=== PATIENT | female | born 1945 | race Caucasian/White ===

== ENCOUNTER → 2016-07-09 | Outpatient (CLI) | payer MEDICARE ==
--- NOTE | 2016-07-12 09:28 | MM ---
Reason for exam: screening (asymptomatic). Last mammogram was performed 6 months ago. History: Patient is postmenopausal. Family history of breast cancer in aunt and breast cancer in sister at age 52. Benign US biopsy breast VAD RT of the right breast, June 23, 2015. MG discontinued stereo core RT of the right breast, June 23, 2015. Excisional biopsy of the left breast. Excisional biopsy of the right breast. Took estrogen for 12 years. Physical Findings: A clinical breast exam by your physician is recommended on an annual basis and results should be correlated with mammographic findings. MG 3D Screening Mammo W/Cad Bilateral CC and MLO view(s) were taken. Prior study comparison: December 30, 2015, right breast MG 3d diag mammo w/cad RT. June 23, 2015, right breast MG diagnostic mammo RT wo CAD. The breast tissue is heterogeneously dense. This may lower the sensitivity of mammography. Finding: There are vascular calcifications. There is no discrete abnormality. No significant changes in finding since December 30, 2015 and June 23, 2015. ASSESSMENT: Benign, BI-RAD 2 RECOMMENDATION: Routine screening mammogram of both breasts in 1 year.
== END | disposition home or self-care (01) ==
LOC: RADMAMWWP 09:27
PROVIDERS: ATTEND Surgery
DX: Z12.31 Encounter for screening mammogram for malignant neoplasm of breast (principal)
CPT/HCPCS: 77063; G0202

== ENCOUNTER → 2017-07-11 | Outpatient (CLI) | payer MEDICARE ==
--- NOTE | 2017-07-12 14:16 | MM ---
Reason for exam: screening (asymptomatic). Last mammogram was performed 1 year ago. History: Patient is postmenopausal. Family history of breast cancer in aunt and breast cancer in sister at age 52. Benign US biopsy breast VAD RT of the right breast, June 23, 2015. MG discontinued stereo core RT of the right breast, June 23, 2015. Excisional biopsy of the left breast. Excisional biopsy of the right breast. Took estrogen for 12 years. Physical Findings: A clinical breast exam by your physician is recommended on an annual basis and results should be correlated with mammographic findings. MG 3D Screening Mammo W/Cad Bilateral CC and MLO view(s) were taken. Prior study comparison: July 09, 2016, bilateral MG 3d screening mammo w/cad. December 30, 2015, right breast MG 3d diag mammo w/cad RT. The breast tissue is heterogeneously dense. This may lower the sensitivity of mammography. Finding: There are typically benign vascular calcifications in both breasts. No suspicious abnormality. No significant changes in finding since July 09, 2016 and December 30, 2015. ASSESSMENT: Benign, BI-RAD 2 RECOMMENDATION: Routine screening mammogram of both breasts in 1 year.
== END | disposition home or self-care (01) ==
LOC: RADMAMWWP 16:21
PROVIDERS: ATTEND Internal Medicine
DX: Z12.31 Encounter for screening mammogram for malignant neoplasm of breast (principal)
CPT/HCPCS: 77063; 77067

== ENCOUNTER 2020-01-02 10:39 | Day surgery (SDC) | payer MEDICARE ==
[2019-12-28 15:49] VITALS: BMI 32.5
[~2020-01-02 10:39] MED LIST: LACTATED RINGERS 1,000 ML IV SCH
[2020-01-02 11:01] VITALS: RESP 16; TEMP 98
[2020-01-02] MEDS ORDERED: ONDANSETRON 4 MG/2 ML VIAL ONE (11:26)
[2020-01-02 11:27] LABS: Glucose,Whole Blood 299 mg/dL (75-99)
[2020-01-02] MEDS ORDERED: INSULIN ASPART (NovoLOG) 100 UNIT/ML VIAL SQ ONE ×2 (11:30→12:52)
[2020-01-02] MEDS ORDERED: PROPOFOL 10 MG/ML 20 ML VIAL IV ONE (12:04)
[2020-01-02] MEDS ORDERED: LIDOCAINE 1% INJ 10MG/ML (20 ML MDV) ONE (12:04)
[2020-01-02] MEDS ORDERED: IV FLUID CONTINUATION 1,000 ML IV ONE (12:39)
[2020-01-02 12:51] LABS: Glucose,Whole Blood 304 mg/dL (75-99)
[2020-01-02 12:55] VITALS: BP 120/65; PULSE 82
--- NOTE | 2020-01-02 13:09 | PCN ---
PROCEDURE NOTE PROCEDURE: Bone marrow aspirate and biopsy. INDICATION: Unexplained anemia. After obtaining consent from the patient, the procedure was performed in the endoscopy suite under general anesthesia performed by Anesthesia Team. The patient was put in the left lateral decubital position. The right posterior iliac crest was localized. Skin was cleansed with ChloraPrep, all sterile procedures were followed; 2 mL of the 2% Xylocaine was used for local anesthetic. One inch needle was inserted about 0.5 cm core biopsy was obtained and the small aspirate was obtained due to dry tap. The patient tolerated procedure very well without any immediate complications. There was negligible blood loss. MMODL / IJN: [id number] /
[2020-01-02 13:34] LABS: HCT 25.5 % (34.0-46.0); HGB 8.3 gm/dL (11.4-16.0); MCH 30.7 pg (25.0-35.0); MCHC 32.7 g/dL (31.0-37.0); Mean Platelet Volume 7.8; Platelet Count 193 k/uL (150-450); RBC 2.71 m/uL (3.80-5.40); RDW 14.9 % (11.5-15.5); Reticulocyte % 2.5 % (0.5-2.0); WBC 3.8 k/uL (3.8-10.6)
[2020-01-02 14:47] LABS: Band Neutrophils % 4 %; Lymphocytes # (M) 1.33 k/uL (1.0-4.8); Metamyelocytes # (M) 0.08 k/uL (0); Metamyelocytes % 2 %; Monocytes # (M) 0.38 k/uL (0-1.0); Myelocytes # (M) 0.11 k/uL (0); Myelocytes % 3 %; Neutrophils % (M) 45 %
[2020-01-02 14:48] LABS: Blast Cells # (M) 0.11 k/uL (0); Nucleated Red Blood Cells 0 /100 WBC (0-0); Total Cells Counted 200
[2020-01-02 14:51] LABS: Poikilocytosis (M) Present
== END 2020-01-02 13:25 | disposition home or self-care (01) ==
LOC: OR 10:39
PROVIDERS: ATTEND Internal Medicine Hematology & Oncology
DX: D64.9 Anemia, unspecified (principal); E11.9 Type 2 diabetes mellitus without complications; I10 Essential (primary) hypertension; K21.9 Gastro-esophageal reflux disease without esophagitis; E78.5 Hyperlipidemia, unspecified; Z98.890 Other specified postprocedural states; Z98.42 Cataract extraction status, left eye; Z98.41 Cataract extraction status, right eye; Z90.49 Acquired absence of other specified parts of digestive tract; Z90.710 Acquired absence of both cervix and uterus; Z86.19 Personal history of other infectious and parasitic diseases; Z83.2 Family history of diseases of the blood and blood-forming organs and certain disorders involving the immune mechanism; Z80.3 Family history of malignant neoplasm of breast; Z79.4 Long term (current) use of insulin; Z79.899 Other long term (current) drug therapy; Z79.82 Long term (current) use of aspirin
CPT/HCPCS: 38222; 85025; 85045; J2405; J2001; J2704

== ENCOUNTER 2020-01-12 11:16 | Inpatient (IN) | payer MEDICARE ==
--- NOTE | 2020-01-12 11:40 | ED ---
General Adult HPI - General Chief complaint: Recheck/Abnormal Lab/Rx Stated complaint: Needs blood transfusion Time Seen by Provider: 01/12/20 11:20 Source: patient, RN notes reviewed, old records reviewed Mode of arrival: ambulatory - History of Present Illness Initial comments: This is a 74 female who has been diagnosed with multiple adenoma and she has been anemic in the past and needed a couple units of blood. Patient states her doctor wanted her to get transfusion next week however she became more short of breath and was finding it difficult to move around her apartment so they told her to come into the emergency department and get a blood transfusion. Patient states she believes her hemoglobin as a couple days ago was 7.2. Patient denies any chest pain or palpitations she does state she has quite a bit of exertional dyspnea. Patient also denies any calf pain or any extra edema in her legs. Patient denies any recent fever chills or cough. Patient denies any nausea vomiting or diarrhea. Patient denies any black or bloody stools. - Related Data Home Medications Medication Instructions Recorded Confirmed Aspirin [Adult Low Dose Aspirin EC] 81 mg PO MOWEFR 11/22/19 12/28/19 Insulin Lispro Rx Scale Form 0 units SQ AC-TID 11/22/19 12/28/19 [humaLOG Outpatient Scale Rx Form] Lisinopril-Hctz 20-25 mg 1 tab PO DAILY 11/22/19 12/28/19 [Zestoretic 20-25] Omeprazole [PriLOSEC] 20 mg PO DAILY 11/22/19 12/28/19 Pravastatin Sodium [Pravachol] 40 mg PO DAILY 11/22/19 12/28/19 Tolterodine Tartrate [Detrol] 4 mg PO DAILY 11/22/19 12/28/19 Ubidecarenone [Co Q-10] 50 mg PO DAILY 11/22/19 12/28/19 amLODIPine BESYLATE [Norvasc] 5 mg PO DAILY 11/22/19 12/28/19 Insulin Glargine [Lantus] 28 - 30 unit SQ DAILY 12/28/19 01/02/20 Allergies Allergy/AdvReac Type Severity Reaction Status Date / Time No Known Allergies Allergy Verified 01/12/20 11:23 Review of Systems ROS Statement: Those systems with pertinent positive or pertinent negative responses have been documented in the HPI. ROS Other: All systems not noted in ROS Statement are negative. Past Medical History Past Medical History: Diabetes Mellitus, GERD/Reflux, Hypertension, Musculoskeletal Disorder Additional Past Medical History / Comment(s): Leaky heart valve. IDDM Type I since 1959. Chronic back pain, herniated discs. History of Any Multi-Drug Resistant Organisms: None Reported Past Surgical History: Breast Surgery, Cholecystectomy, Hysterectomy, Orthopedic Surgery, Tubal Ligation Additional Past Surgical History / Comment(s): Bilat breast biopsy. Bilat cataracts; Laser of eyes for bleeding blood vessels. Rt Foot surgery x2. Bilat CTR. Past Anesthesia/Blood Transfusion Reactions: Motion Sickness, Postoperative Nausea & Vomiting (PONV) Smoking Status: Never smoker Past Alcohol Use History: None Reported Past Drug Use History: None Reported - Past Family History Sister(s) Family Medical History: Cancer Additional Family Medical History / Comment(s): breast cancer Father Family Medical History: Pulmonary Embolus General Exam - General Exam Comments Initial Comments: GENERAL: Patient is well-developed and well-nourished. Patient is nontoxic and well- hydrated and is in no acute distress. ENT: Neck is soft and supple. No significant lymphadenopathy is noted. Oropharynx is clear. Moist mucous membranes. Neck has full range of motion without eliciting any pain. EYES: The sclera were anicteric and conjunctiva were pink and moist. Extraocular movements were intact and pupils were equal round and reactive to light. Eyelids were unremarkable. PULMONARY: Unlabored respirations. Good breath sounds bilaterally. No audible rales rhonchi or wheezing was noted. CARDIOVASCULAR: There is a regular rate and rhythm without any murmurs gallops or rubs. ABDOMEN: Soft and nontender with normal bowel sounds. SKIN: Patient is pale NEUROLOGIC: Patient is alert and oriented x3. Cranial nerves II through XII are grossly intact. Motor and sensory are also intact. Normal speech, volume and content. Symmetrical smile. MUSCULOSKELETAL: Normal extremities with adequate strength and full range of motion. No lower extremity swelling or edema. No calf tenderness. LYMPHATICS: No significant lymphadenopathy is noted PSYCHIATRIC: Normal psychiatric evaluation. Course Vital Signs 01/12/20 01/12/20 11:23 12:17 Temperature 98.1 F 98.5 F Pulse Rate 84 90 Respiratory 18 18 Rate Blood Pressure 144/74 139/54 O2 Sat by Pulse 98 96 Oximetry Medical Decision Making - Medical Decision Making EKG shows normal sinus rhythm at 79 bpm DE interval is on a 58 QRSs 106 Q-T intervals 356 QTC of 408. Patient's EKG shows no ST segment elevation or depression. I spoke with the senior accounts payable specialist he wanted the patient needed to units of packed red blood cells. Patient will be admitted to Dr. Sheikh Khan wrote admitting orders - Lab Data Result diagrams: 01/12/20 11:54 01/12/20 11:54 Lab Results 01/12/20 01/12/20 01/12/20 Range/Units 11:54 11:54 11:54 WBC 3.9 (3.8-10.6) k/uL RBC 2.21 L (3.80-5.40) m/uL Hgb 7.0 L (11.4-16.0) gm/dL Hct 20.8 L (34.0-46.0) % MCV 94.3 (80.0-100.0) fL MCH 31.6 (25.0-35.0) pg MCHC 33.5 (31.0-37.0) g/dL RDW 15.6 H (11.5-15.5) % Plt Count 199 (150-450) k/uL PT 9.6 (9.0-12.0) sec INR 0.9 (<1.2) APTT 22.4 (22.0-30.0) sec Sodium 131 L (137-145) mmol/L Potassium 4.4 (3.5-5.1) mmol/L Chloride 98 (98-107) mmol/L Carbon Dioxide 22 (22-30) mmol/L Anion Gap 11 mmol/L BUN 33 H (7-17) mg/dL Creatinine 1.96 H (0.52-1.04) mg/dL Est GFR (CKD-EPI)AfAm 28 (>60 ml/min/1.73 sqM) Est GFR (CKD-EPI)NonAf 24 (>60 ml/min/1.73 sqM) Glucose 84 (74-99) mg/dL Calcium 10.2 (8.4-10.2) mg/dL Total Bilirubin 0.7 (0.2-1.3) mg/dL AST 30 (14-36) U/L ALT 12 (4-34) U/L Alkaline Phosphatase 71 (38-126) U/L Troponin I (0.000-0.034) ng/mL Total Protein 6.8 (6.3-8.2) g/dL Albumin 4.0 (3.5-5.0) g/dL Blood Type Blood Type Recheck Bld Type Recheck Status Antibody Screen Spec Expiration Date 01/12/20 01/12/20 Range/Units 11:54 11:54 WBC (3.8-10.6) k/uL RBC (3.80-5.40) m/uL Hgb (11.4-16.0) gm/dL Hct (34.0-46.0) % MCV (80.0-100.0) fL MCH (25.0-35.0) pg MCHC (31.0-37.0) g/dL RDW (11.5-15.5) % Plt Count (150-450) k/uL PT (9.0-12.0) sec INR (<1.2) APTT (22.0-30.0) sec Sodium (137-145) mmol/L Potassium (3.5-5.1) mmol/L Chloride (98-107) mmol/L Carbon Dioxide (22-30) mmol/L Anion Gap mmol/L BUN (7-17) mg/dL Creatinine (0.52-1.04) mg/dL Est GFR (CKD-EPI)AfAm (>60 ml/min/1.73 sqM) Est GFR (CKD-EPI)NonAf (>60 ml/min/1.73 sqM) Glucose (74-99) mg/dL Calcium (8.4-10.2) mg/dL Total Bilirubin (0.2-1.3) mg/dL AST (14-36) U/L ALT (4-34) U/L Alkaline Phosphatase (38-126) U/L Troponin I 0.017 (0.000-0.034) ng/mL Total Protein (6.3-8.2) g/dL Albumin (3.5-5.0) g/dL Blood Type O Positive Blood Type Recheck O Pos Bld Type Recheck Status No Antibody Screen NEGATIVE Spec Expiration Date 01/15/2020 - 2353 Disposition Clinical Impression: Anemia, Shortness of breath Disposition: ADMITTED IP TO THIS [facility] Referrals: Zaria Sands MD [Primary Care Provider] - 1-2 days Time of Disposition: 13:04
--- NOTE | 2020-01-12 12:04 | XR ---
EXAMINATION TYPE: XR chest 2V DATE OF EXAM: 01/12/2020 COMPARISON: NONE HISTORY: Shortness of breath TECHNIQUE: Frontal and lateral views of the chest are obtained. FINDINGS: Scattered senescent parenchymal changes noted. Hyperinflation compatible with COPD. Patchy basilar infiltrates may reflect developing pneumonia. Granuloma left upper lobe. Heart size is stable. Mediastinal structures are stable and grossly unremarkable. No evidence for hilar prominence. Degenerative changes dorsal spine. IMPRESSION: 1. Patchy basilar infiltrates may reflect developing pneumonia. Granuloma left upper lobe.
[2020-01-12 12:14] LABS: Calcium 10.2 mg/dL (8.4-10.2); Potassium 4.4 mmol/L (3.5-5.1); Total Bilirubin 0.7 mg/dL (0.2-1.3); Total Protein 6.8 g/dL (6.3-8.2)
[2020-01-12 12:19] LABS: HCT 20.8 % (34.0-46.0); MCH 31.6 pg (25.0-35.0); MCHC 33.5 g/dL (31.0-37.0); MCV 94.3 fL (80.0-100.0); Mean Platelet Volume 7.4; Platelet Count 199 k/uL (150-450); RBC 2.21 m/uL (3.80-5.40); RDW 15.6 % (11.5-15.5); WBC 3.9 k/uL (3.8-10.6)
[2020-01-12 12:22] LABS: INR 0.9 (<1.2); Partial Thromboplastin Time 22.4 sec (22.0-30.0); Prothrombin Time 9.6 sec (9.0-12.0)
[2020-01-12 13:27] LABS: Band Neutrophils % 1 %; Lymphocytes # (M) 1.17 k/uL (1.0-4.8); Metamyelocytes # (M) 0.04 k/uL (0); Metamyelocytes % 1 %; Monocytes # (M) 0.55 k/uL (0-1.0); Myelocytes # (M) 0.12 k/uL (0); Myelocytes % 3 %; Neutrophils % (M) 52 %
[2020-01-12 13:32] LABS: Blast Cells # (M) 0.04 k/uL (0); Nucleated Red Blood Cells 0 /100 WBC (0-0); Total Cells Counted 200
[2020-01-12] MEDS ORDERED: HYDROcodone/APAP 5-325MG 1 EACH TAB PO PRN (17:16)
[2020-01-12] MEDS ORDERED: ACETAMINOPHEN TAB 325 MG TAB PO PRN (17:16)
[2020-01-12] MEDS ORDERED: ALPRAZolam 0.25 MG TAB PO PRN (17:17)
[2020-01-12] MEDS ORDERED: DEXTROSE 50% SYRINGE 50 ML IVP STA (17:18)
[2020-01-12 17:19] LABS: Glucose,Whole Blood 66 mg/dL (75-99)
[2020-01-12 17:19] LABS: Glucose,Whole Blood 64 mg/dL (75-99)
[2020-01-12] MEDS ORDERED: DEXTROSE 50% SYRINGE 50 ML IVP ONE (17:22)
[2020-01-12 17:46] LABS: Glucose,Whole Blood 151 mg/dL (75-99)
[2020-01-12] MEDS: INSULIN ASPART (NovoLOG) 100 UNIT/ML VIAL SQ SCH ×2 (18:20→20:42)
[2020-01-12 20:27] LABS: Glucose,Whole Blood 188 mg/dL (75-99)
[2020-01-12] MEDS: MELATONIN 3 MG TABLET PO SCH (20:42)
[2020-01-12 21:49] LABS: HCT 29.7 % (34.0-46.0); MCH 32.5 pg (25.0-35.0); MCHC 33.4 g/dL (31.0-37.0); MCV 97.3 fL (80.0-100.0); Mean Platelet Volume 7.2; Platelet Count 166 k/uL (150-450); RBC 3.06 m/uL (3.80-5.40); RDW 14.9 % (11.5-15.5); WBC 4.1 k/uL (3.8-10.6)
[2020-01-12 21:58] LABS: HGB 9.9 gm/dL (11.4-16.0)
[2020-01-12 22:36] LABS: Band Neutrophils % 7 %; Blast Cells # (M) 0.04 k/uL (0); Lymphocytes # (M) 1.31 k/uL (1.0-4.8); Metamyelocytes # (M) 0.08 k/uL (0); Metamyelocytes % 2 %; Monocytes # (M) 0.21 k/uL (0-1.0); Myelocytes # (M) 0.04 k/uL (0); Myelocytes % 1 %; Neutrophils % (M) 54 %; Nucleated Red Blood Cells 1 /100 WBC (0-0); Polychromasia Present; Total Cells Counted 200
[2020-01-12 22:37] LABS: Anisocytosis (M) Present
[2020-01-13 07:06] LABS: Glucose,Whole Blood 167 mg/dL (75-99)
[2020-01-13 07:09] LABS: HCT 30.1 % (34.0-46.0); HGB 10.1 gm/dL (11.4-16.0); MCH 31.8 pg (25.0-35.0); MCHC 33.6 g/dL (31.0-37.0); MCV 94.8 fL (80.0-100.0); Mean Platelet Volume 7.7; Platelet Count 164 k/uL (150-450); RBC 3.18 m/uL (3.80-5.40); WBC 5.5 k/uL (3.8-10.6)
[2020-01-13] MEDS: ONDANSETRON 4 MG/2 ML VIAL IVP PRN ×3 (07:11→20:06)
[2020-01-13] MEDS: INSULIN DETEMIR (LEVEMIR) 100 UNIT/ML SYR SQ SCH (07:15)
[2020-01-13] MEDS: INSULIN ASPART (NovoLOG) 100 UNIT/ML VIAL SQ SCH ×4 (07:15→20:32)
[2020-01-13 07:16] LABS: Calcium 10.2 mg/dL (8.4-10.2); Potassium 4.3 mmol/L (3.5-5.1)
--- NOTE | 2020-01-13 07:39 | XR ---
EXAMINATION TYPE: XR chest 1V DATE OF EXAM: 01/13/2020 CLINICAL HISTORY: Difficulty breathing progress study. History of multiple myeloma. TECHNIQUE: Single AP portable frontal view of the chest is obtained. COMPARISON: Chest x-ray from one day earlier FINDINGS: Osseous structures remain demineralized. Underlying scoliosis is noted. Cardiac silhouette size is stable and within normal limits. Worsening right basilar opacity partially silhouetting righ t hemidiaphragm. Background chronic parenchymal change. Stable left mid lung linear scarring or atele ctasis. Stable lateral left upper lung calcified 9 mm nodule or granuloma. IMPRESSION: Chronic changes with worsening right lower lobe acute infiltrate and/or atelectasis noted .
[2020-01-13] MEDS: amLODIPine 5 MG TAB PO SCH (08:15)
[2020-01-13] MEDS: LISINOPRIL-HCTZ 20-25 MG 1 EACH TAB PO SCH (08:15)
[2020-01-13] MEDS: PRAVASTATIN SODIUM 40 MG TAB PO SCH (08:16)
[2020-01-13] MEDS: PANTOPRAZOLE 40 MG TABLET PO SCH (08:16)
[2020-01-13] MEDS: OXYBUTYNIN XL 5 MG TAB.ER.24 PO SCH (08:16)
[2020-01-13] MEDS ORDERED: NON FORMULARY DRUG (Ubidecarenone [Co Q-10] 100 MG) PO SCH (09:00)
[2020-01-13 09:31] LABS: Band Neutrophils % 3 %; Blast Cells # (M) 0.06 k/uL (0); Lymphocytes # (M) 1.21 k/uL (1.0-4.8); Metamyelocytes # (M) 0.06 k/uL (0); Metamyelocytes % 1 %; Monocytes # (M) 0.55 k/uL (0-1.0); Myelocytes # (M) 0.11 k/uL (0); Myelocytes % 2 %; Neutrophils % (M) 64 %; Nucleated Red Blood Cells 0 /100 WBC (0-0); Total Cells Counted 200
--- NOTE | 2020-01-13 10:25 | P.HPIM ---
History of Present Illness H&P Date: 01/12/20 Chief Complaint: Abnormal labs 74 female who has been diagnosed with multiple adenoma and she has been anemic in the past and needed a couple units of blood. Patient states her doctor wanted her to get transfusion next week however she became more short of breath and was finding it difficult to move around her apartment so they told her to come into the emergency department and get a blood transfusion. Patient states she believes her hemoglobin as a couple days ago was 7.2. Patient denies any chest pain or palpitations she does state she has quite a bit of exertional dyspnea. Patient also denies any calf pain or any extra edema in her legs. Patient denies any recent fever chills or cough. Patient denies any nausea vomiting or diarrhea. Patient denies any black or bloody stools. Workup in ED was significant for an EKG revealing normal sinus rhythm with a hea rt rate of 79, QRS of [address] segment elevation or depression; blood work in ED was significant for hemoglobin of 7.0, sodium of 131, BUN/cr of 33/1.96; patient was discussed with primary design specialist by ER physician and patient was recommended transfusion with packed RBCs Review of Systems REVIEW OF SYSTEMS: CONSTITUTIONAL: fatigue. HEENT: No recent visual problems or hearing problems. Denied any sore throat. CARDIOVASCULAR: No chest pain, orthopnea, PND, no palpitations, no syncope. PULMONARY: Complains shortness of breath. GASTROINTESTINAL: No diarrhea, no nausea, no vomiting, no abdominal pain. NEUROLOGICAL: No headaches, no weakness, no numbness. HEMATOLOGICAL: Denies any bleeding or petechiae. GENITOURINARY: Denies any burning micturition, frequency, or urgency. MUSCULOSKELETAL/RHEUMATOLOGICAL: Denies any joint pain, swelling, or any muscle pain. ENDOCRINE: Denies any polyuria or polydipsia. The rest of the 14-point review of systems is negative. Past Medical History Past Medical History: Diabetes Mellitus, GERD/Reflux, Hypertension, Musculoskeletal Disorder Additional Past Medical History / Comment(s): Leaky heart valve. IDDM Type I since 1959. Chronic back pain, herniated discs, multiple mylenoma History of Any Multi-Drug Resistant Organisms: None Reported Past Surgical History: Breast Surgery, Cholecystectomy, Hysterectomy, Orthopedic Surgery, Tubal Ligation Additional Past Surgical History / Comment(s): Bilat breast biopsy. Bilat ca taracts; Laser of eyes for bleeding blood vessels. Rt Foot surgery x2. Bilat CTR. Past Anesthesia/Blood Transfusion Reactions: Motion Sickness, Postoperative Nausea & Vomiting (PONV) Smoking Status: Never smoker Past Alcohol Use History: None Reported Past Drug Use History: None Reported - Past Family History Sister(s) Family Medical History: Cancer Additional Family Medical History / Comment(s): breast cancer Father Family Medical History: Pulmonary Embolus Medications and Allergies Home Medications Medication Instructions Recorded Confirmed Type Aspirin [Adult Low Dose Aspirin EC] 81 mg PO MOWEFR 11/22/19 01/12/20 History Insulin Lispro Rx Scale Form See Protocol SQ AC-TID 11/22/19 01/12/20 History [humaLOG Outpatient Scale Rx Form] Lisinopril-Hctz 20-25 mg 1 tab PO DAILY 11/22/19 01/12/20 History [Zestoretic 20-25] Omeprazole [PriLOSEC] 20 mg PO DAILY 11/22/19 01/12/20 History Pravastatin Sodium [Pravachol] 40 mg PO DAILY 11/22/19 01/12/20 History Tolterodine Tartrate [Detrol] 4 mg PO DAILY 11/22/19 01/12/20 History Ubidecarenone [Co Q-10] 100 mg PO DAILY 11/22/19 01/12/20 History amLODIPine BESYLATE [Norvasc] 5 mg PO DAILY 11/22/19 01/12/20 History Insulin Glargine [Lantus] 28 - 30 unit SQ DAILY 12/28/19 01/12/20 History calcium polycarbophiL [Fibercon] 625 mg PO DAILY 01/12/20 01/12/20 History Allergies Allergy/AdvReac Type Severity Reaction Status Date / Time No Known Allergies Allergy Verified 01/12/20 13:24 Physical Exam Vitals: Vital Signs Temp Pulse Pulse Resp BP BP Pulse Ox 01/12/20 17:12 97.8 F 77 18 156/72 98 01/12/20 17:11 97.8 F 76 18 156/72 97 01/12/20 17:01 98.1 F 77 18 151/73 95 01/12/20 16:48 98.1 F 74 18 138/75 97 01/12/20 14:44 98.5 F 83 18 138/67 98 01/12/20 14:23 83 18 141/61 01/12/20 14:13 97.8 F 80 20 147/67 97 01/12/20 12:17 98.5 F 90 18 139/54 96 01/12/20 11:23 98.1 F 84 18 144/74 98 Intake and Output 01/12/20 01/12/20 01/12/20 06:59 14:59 22:59 Intake Total 0 310 Balance 0 310 Intake: Blood Product 0 310 Rc As-1 Unit 0 [id number] Rc As-1 Unit 0 310 [id number] Other: # Voids 1 Weight 81.193 kg - Constitutional General appearance: Present: average body habitus, cooperative, no acute distress - EENT Eyes: Present: anicteric sclerae, EOMI, PERRLA, normal appearance ENT: Present: hearing grossly normal, normal oropharynx Ears: bilateral: normal - Neck Neck: Present: normal ROM. Absent: lymphadenopathy, rigidity, thyromegaly Carotids: negative: bruit present Thyroid: bilateral: normal size, negative: enlarged, nodule - Respiratory Respiratory: bilateral: CTA, negative: rales, rhonchi, wheezing - Cardiovascular Rhythm: regular Heart sounds: normal: S1, S2 Abnormal Heart Sounds: Absent: systolic murmur, diastolic murmur - Gastrointestinal General gastrointestinal: Present: normal bowel sounds, soft. Absent: distended, organomegaly, tenderness - Genitourinary Genitourinary Comment(s): deferred - Integumentary Integumentary: Present: normal turgor. Absent: jaundiced, rash, ulcer - Neurologic Neurologic: Present: CNII-XII intact. Absent: focal deficits - Musculoskeletal Musculoskeletal: Present: gait normal, strength equal bilaterally - Psychiatric Psychiatric: Present: A&O x's 3, appropriate affect, intact judgment & insight Results CBC & Chem 7: 01/13/20 06:23 01/13/20 06:23 Labs: Abnormal Lab Results - Last 24 Hours (Table) 01/12/20 01/12/20 01/12/20 Range/Units 11:54 11:54 11:54 RBC 2.21 L (3.80-5.40) m/uL Hgb 7.0 L (11.4-16.0) gm/dL Hct 20.8 L (34.0-46.0) % RDW 15.6 H (11.5-15.5) % Blast Cells % 1 H* % Metamyelocytes # (Man) 0.04 H (0) k/uL Myelocytes # (Manual) 0.12 H (0) k/uL Blast Cells # (Man) 0.04 H (0) k/uL Sodium 131 L (137-145) mmol/L BUN 33 H (7-17) mg/dL Creatinine 1.96 H (0.52-1.04) mg/dL POC Glucose (mg/dL) (75-99) mg/dL Crossmatch See Detail 01/12/20 01/12/20 Range/Units 17:01 17:16 RBC (3.80-5.40) m/uL Hgb (11.4-16.0) gm/dL Hct (34.0-46.0) % RDW (11.5-15.5) % Blast Cells % % Metamyelocytes # (Man) (0) k/uL Myelocytes # (Manual) (0) k/uL Blast Cells # (Man) (0) k/uL Sodium (137-145) mmol/L BUN (7-17) mg/dL Creatinine (0.52-1.04) mg/dL POC Glucose (mg/dL) 64 L 66 L (75-99) mg/dL Crossmatch Thrombosis Risk Factor Assmnt - Choose All That Apply Any of the Below Risk Factors Present?: No Each Risk Factor Represents 3 Points: Age 75 years or older Other congenital or acquired thrombophilia - If yes, enter type in comment: No Thrombosis Risk Factor Assessment Total Risk Factor Score: 3 Thrombosis Risk Factor Assessment Level: Moderate Risk Assessment and Plan Assessment: 1. Severe symptomatic anemia/ multiple myeloma - Patient will be transfused with packed RBCs; we will monitor H&H closely with plans for possible discharge in next 24 hours if hemoglobin remains stable 2. Acute renal injury/dehydration; patient encouraged to have increased fluid intake; we will repeat BUN/creatinine 24 hours; monitor electrolytes and avoid nephrotoxic agents and hypertension; we will hold off on Zestoretic if renal function continues to deteriorate 3. Mild hyponatremia; monitor electrolytes and start patient on IV fluids if sodium levels continue to try 4. Hypertension; reorder home dose of amlodipine 5 mg daily and lisinopril/hydrochlorothiazide 2024 milligrams 1 daily 5. Diabetes mellitus type I; Levemir 28 units subcu daily; continue to monitor Accu-Cheks every before meals and at bedtime insulin sliding scale 6. Hyperlipidemia; pravastatin 40 mg daily DVT prophylaxis; SCDs CODE STATUS; full code
[2020-01-13 11:38] LABS: Glucose,Whole Blood 242 mg/dL (75-99)
[2020-01-13] MEDS ORDERED: FUROSEMIDE 10 MG/ML 4 ML VIAL IV STA (11:53)
[2020-01-13 16:41] LABS: Glucose,Whole Blood 221 mg/dL (75-99)
--- NOTE | 2020-01-13 16:57 | P.PN ---
Subjective Progress Note Date: 01/13/20 Principal diagnosis: Severe symptomatic anemia 74 female who has been diagnosed with multiple adenoma and she has been anemic in the past and needed a couple units of blood. Patient states her doctor wanted her to get transfusion next week however she became more short of breath and was finding it difficult to move around her apartment so they told her to come into the emergency department and get a blood transfusion. Patient was transfused with 2 units of packed RBCs with hemoglobin stable above 9; patient was scheduled to be discharged this morning however patient developed shortness of breath and wheezing on minimal exertion; chest x-ray was done which did not show any pneumonia; patient did receive 1 dose of Lasix 40 mg IV which did improve symptoms; we will order BNP, troponin along with pro-calcitonin and lactic acid levels; order DuoNeb nebulizer treatments for wheezing and shortness of breath; hold discharge for another 24 hours Objective - Vital Signs Vital signs: Vital Signs Temp 98.3 F 01/13/20 15:00 Pulse 91 01/13/20 15:00 Resp 18 01/13/20 15:00 BP 151/69 01/13/20 15:00 Pulse Ox 92 L 01/13/20 15:00 Intake & Output 01/12/20 01/13/20 01/13/20 18:59 06:59 18:59 Intake Total 310 0 Output Total 600 Balance 310 0 -600 Weight 81.193 kg Intake: Blood Product 310 0 Rc As-1 Unit 0 0 [id number] Rc As-1 Unit 310 [id number] Output: Urine 600 Other: Voiding Method Toilet Toilet # Voids 1 2 - Exam General appearance: Mild respiratory distress with ambulation Neck: Present: normal ROM. Absent: lymphadenopathy, rigidity, thyromegaly Respiratory: Crackles and scattered rhonchi bilateral lower lung field Cardiovascular; regular; normal: S1, S2 General gastrointestinal: Present: normal bowel sounds, soft. Integumentary: Present: normal turgor. Absent: jaundiced, rash, ulcer Neurologic: Present: CNII-XII intact. Absent: focal deficits Musculoskeletal: Present: gait normal, strength equal bilaterally Psychiatric: Present: A&O x's 3, appropriate affect, intact judgment & insight - Labs CBC & Chem 7: 01/13/20 06:23 01/13/20 06:23 Labs: Abnormal Lab Results - Last 24 Hours (Table) 01/12/20 01/12/20 01/12/20 Range/Units 11:54 17:01 17:16 RBC (3.80-5.40) m/uL Hgb (11.4-16.0) gm/dL Hct (34.0-46.0) % Blast Cells % % Metamyelocytes # (Man) (0) k/uL Myelocytes # (Manual) (0) k/uL Blast Cells # (Man) (0) k/uL Nucleated RBCs (0-0) /100 WBC Sodium (137-145) mmol/L Carbon Dioxide (22-30) mmol/L BUN (7-17) mg/dL Creatinine (0.52-1.04) mg/dL Glucose (74-99) mg/dL POC Glucose (mg/dL) 64 L 66 L (75-99) mg/dL Crossmatch See Detail 01/12/20 01/12/20 01/12/20 Range/Units 17:44 20:25 21:20 RBC 3.06 L (3.80-5.40) m/uL Hgb 9.9 L D (11.4-16.0) gm/dL Hct 29.7 L (34.0-46.0) % Blast Cells % 1 H* % Metamyelocytes # (Man) 0.08 H (0) k/uL Myelocytes # (Manual) 0.04 H (0) k/uL Blast Cells # (Man) 0.04 H (0) k/uL Nucleated RBCs 1 H (0-0) /100 WBC Sodium (137-145) mmol/L Carbon Dioxide (22-30) mmol/L BUN (7-17) mg/dL Creatinine (0.52-1.04) mg/dL Glucose (74-99) mg/dL POC Glucose (mg/dL) 151 H 188 H (75-99) mg/dL Crossmatch 01/13/20 01/13/20 01/13/20 Range/Units 06:23 06:23 07:01 RBC 3.18 L (3.80-5.40) m/uL Hgb 10.1 L (11.4-16.0) gm/dL Hct 30.1 L (34.0-46.0) % Blast Cells % 1 H* % Metamyelocytes # (Man) 0.06 H (0) k/uL Myelocytes # (Manual) 0.11 H (0) k/uL Blast Cells # (Man) 0.06 H (0) k/uL Nucleated RBCs (0-0) /100 WBC Sodium 129 L (137-145) mmol/L Carbon Dioxide 21 L (22-30) mmol/L BUN 32 H (7-17) mg/dL Creatinine 1.68 H (0.52-1.04) mg/dL Glucose 136 H (74-99) mg/dL POC Glucose (mg/dL) 167 H (75-99) mg/dL Crossmatch 01/13/20 01/13/20 Range/Units 11:35 16:38 RBC (3.80-5.40) m/uL Hgb (11.4-16.0) gm/dL Hct (34.0-46.0) % Blast Cells % % Metamyelocytes # (Man) (0) k/uL Myelocytes # (Manual) (0) k/uL Blast Cells # (Man) (0) k/uL Nucleated RBCs (0-0) /100 WBC Sodium (137-145) mmol/L Carbon Dioxide (22-30) mmol/L BUN (7-17) mg/dL Creatinine (0.52-1.04) mg/dL Glucose (74-99) mg/dL POC Glucose (mg/dL) 242 H 221 H (75-99) mg/dL Crossmatch Assessment and Plan Assessment: 1. Severe symptomatic anemia/ multiple myeloma - Patient will be transfused with packed RBCs; we will monitor H&H closely with plans for possible discharge in next 24 hours if hemoglobin remains stable 2. Acute renal injury/dehydration; patient encouraged to have increased fluid intake; we will repeat BUN/creatinine 24 hours; monitor electrolytes and avoid nephrotoxic agents and hypertension; we will hold off on Zestoretic if renal function continues to deteriorate 3. Mild hyponatremia; monitor electrolytes and start patient on IV fluids if sodium levels continue to try 4. Hypertension; reorder home dose of amlodipine 5 mg daily and lisinopril/hydrochlorothiazide 2025 milligrams 1 daily 5. Diabetes mellitus type I; Levemir 28 units subcu daily; continue to monitor Accu-Cheks every before meals and at bedtime insulin sliding scale 6. Hyperlipidemia; pravastatin 40 mg daily DVT prophylaxis; SCDs CODE STATUS; full code
[2020-01-13] MEDS ORDERED: FUROSEMIDE 10 MG/ML 4 ML VIAL IV ONE (17:00)
--- NOTE | 2020-01-13 18:48 | P.PN ---
Progress Note - Text Progress Note Date: 01/13/20 Full consult to follow tomorrow. Pt with newly diagnosed MM. Seen by Dr. Reno on 01/11/20, and diagnosis discussed. Plan was to start palliative chemotherapy, modified RVD possibly however pt has not started this yet. Advised to go to ER for symptomatic anemia, Hgb 7.2, and transfusion however pt initially opted to proceed with outpt transfusion on Tuesday. Symptoms seem to have progressed and she ended up in ER on 01/12/20, where she was given 2 units of pRBC for Hgb 7 as she received 2 units in the past for this. Hgb improved to 10.1 however, course complicated by SOB due to fluid overload. CXR obtained on day of presenatation and repeated today, revealed increased infiltrate, possibly due to pneumonia vs atelectasis. Likely worsening is due to fluid overload. Agree with diuresis. Consider treatment of pneumonia if symptoms persists. Pt afebrile otherwise. Also with new nausea, possibly from fluid retention. Monitor for now. Discussed with nursing staff.
[2020-01-13 20:20] LABS: Glucose,Whole Blood 259 mg/dL (75-99)
[2020-01-13] MEDS: MELATONIN 3 MG TABLET PO SCH (20:33)
[2020-01-14 07:03] LABS: Glucose,Whole Blood 198 mg/dL (75-99)
[2020-01-14] MEDS: PRAVASTATIN SODIUM 40 MG TAB PO SCH (07:22)
[2020-01-14] MEDS: ASPIRIN 81 MG PO SCH (07:22)
[2020-01-14] MEDS: amLODIPine 5 MG TAB PO SCH (07:23)
[2020-01-14] MEDS: PANTOPRAZOLE 40 MG TABLET PO SCH (07:23)
[2020-01-14] MEDS: INSULIN ASPART (NovoLOG) 100 UNIT/ML VIAL SQ SCH ×4 (07:23→22:26)
[2020-01-14] MEDS: OXYBUTYNIN XL 5 MG TAB.ER.24 PO SCH (07:23)
[2020-01-14] MEDS: LISINOPRIL-HCTZ 20-25 MG 1 EACH TAB PO SCH (07:23)
--- NOTE | 2020-01-14 07:38 | XR ---
EXAMINATION TYPE: XR chest 1V DATE OF EXAM: 01/14/2020 COMPARISON: 01/13/2020 HISTORY: 74-year-old female fluid overload TECHNIQUE: Single frontal view of the chest is obtained. FINDINGS: Heart upper limits of normal in size. Calcified granuloma peripheral left upper lobe. Consolidation r ight lower lung minimally less confluent. Blunted left costophrenic angle persists. Mild interstitial density persists. IMPRESSION: 1. There may be continued mild pulmonary vascular congestion. 2. Continued trace right effusion. 3. Persistent but slightly less confluent consolidation at the right base.
[2020-01-14 07:52] LABS: HCT 28.1 % (34.0-46.0); HGB 9.3 gm/dL (11.4-16.0); MCH 31.6 pg (25.0-35.0); Mean Platelet Volume 7.9; Platelet Count 156 k/uL (150-450); RBC 2.93 m/uL (3.80-5.40); RDW 15.1 % (11.5-15.5); WBC 4.1 k/uL (3.8-10.6)
[2020-01-14 07:59] LABS: Calcium 10.2 mg/dL (8.4-10.2); Potassium 3.8 mmol/L (3.5-5.1)
[2020-01-14] MEDS: IPRATROPIUM-ALBUTEROL 3 ML NEB INHALATION PRN ×4 (08:28→20:34)
[2020-01-14 09:08] LABS: Band Neutrophils % 2 %; Blast Cells # (M) 0.04 k/uL (0); Lymphocytes # (M) 0.78 k/uL (1.0-4.8); Monocytes # (M) 0.66 k/uL (0-1.0); Myelocytes # (M) 0.08 k/uL (0); Myelocytes % 2 %; Neutrophils % (M) 59 %; Nucleated Red Blood Cells 0 /100 WBC (0-0); Promyelocytes # (M) 0.04 k/uL (0); Promyelocytes % 1 %; Total Cells Counted 100
[2020-01-14] MEDS ORDERED: FUROSEMIDE 10 MG/ML 4 ML VIAL IV STA (09:31)
[2020-01-14 10:40] LABS: Poikilocytosis (M) Present
[2020-01-14 11:21] LABS: Glucose,Whole Blood 304 mg/dL (75-99)
[2020-01-14] MEDS: INSULIN DETEMIR (LEVEMIR) 100 UNIT/ML SYR SQ SCH (11:24)
--- NOTE | 2020-01-14 13:09 | P.NPCON ---
History of Present Illness - Reason for Consult acute renal failure - History of Present Illness Reason for consultation: Acute kidney injury History of present illness: Patient is a 74-year-old female seen in renal consultation for acute kidney injury. Patient's creatinine in November 2019 was 1.6. Patient does not follow with a cornetist outpatient. Creatinine this admission was 1.96 and did improve to 1.6 today but is up to 2.02 today. Patient was recently diagnosed with multiple myeloma but has not started the treatment yet. She came to the hospital for symptom medical anemia and did receive blood transfusion. Hemoglobin is 9.3 today. She also felt short of breath on admission that has i mproved. Blood pressure has been stable. Denies regular use of nonsteroidals. Denies family history of renal disease. Patient has long-standing history of diabetes mellitus. States she was diagnosed over 60 years ago. She denies any hematuria or dysuria. No cough. No fever or chills. Blood sugar controlled. No other complaints at this time. Vital signs are stable. General: The patient appeared well nourished and normally developed. HEENT: Head exam is unremarkable. Neck is without jugular venous distension. LUNGS: Breath sounds decreased. HEART: Rate and Rhythm are regular. ABDOMEN: Soft, nontender. EXTREMITITES: 1+ edema. Past Medical History Past Medical History: Cancer, Diabetes Mellitus, GERD/Reflux, Hypertension, Musculoskeletal Disorder Additional Past Medical History / Comment(s): Leaky heart valve. IDDM Type I since 1959. Chronic back pain, herniated discs, multiple mylenoma History of Any Multi-Drug Resistant Organisms: None Reported Past Surgical History: Breast Surgery, Cholecystectomy, Hysterectomy, Orthopedic Surgery, Tubal Ligation Additional Past Surgical History / Comment(s): Bilat breast biopsy. Bilat cataracts; Laser of eyes for bleeding blood vessels. Rt Foot surgery x2. Bilat CTR. Past Anesthesia/Blood Transfusion Reactions: Motion Sickness, Postoperative Nausea & Vomiting (PONV) Past Psychological History: No Psychological Hx Reported Smoking Status: Never smoker Past Alcohol Use History: None Reported Past Drug Use History: None Reported - Past Family History Sister(s) Family Medical History: Cancer Additional Family Medical History / Comment(s): breast cancer Father Family Medical History: Pulmonary Embolus Medications and Allergies Home Medications Medication Instructions Recorded Confirmed Type Aspirin [Adult Low Dose Aspirin EC] 81 mg PO MOWEFR 11/22/19 01/12/20 History Insulin Lispro Rx Scale Form See Protocol SQ AC-TID 11/22/19 01/12/20 History [humaLOG Outpatient Scale Rx Form] Lisinopril-Hctz 20-25 mg 1 tab PO DAILY 11/22/19 01/12/20 History [Zestoretic 20-25] Omeprazole [PriLOSEC] 20 mg PO DAILY 11/22/19 01/12/20 History Pravastatin Sodium [Pravachol] 40 mg PO DAILY 11/22/19 01/12/20 History Tolterodine Tartrate [Detrol] 4 mg PO DAILY 11/22/19 01/12/20 History Ubidecarenone [Co Q-10] 100 mg PO DAILY 11/22/19 01/12/20 History amLODIPine BESYLATE [Norvasc] 5 mg PO DAILY 11/22/19 01/12/20 History Insulin Glargine [Lantus] 28 - 30 unit SQ DAILY 12/28/19 01/12/20 History calcium polycarbophiL [Fibercon] 625 mg PO DAILY 01/12/20 01/12/20 History Allergies Allergy/AdvReac Type Severity Reaction Status Date / Time No Known Allergies Allergy Verified 01/12/20 13:24 Physical Exam Vitals: Vital Signs Temp Pulse Pulse Resp BP Pulse Ox 01/14/20 11:59 77 01/14/20 08:48 77 01/14/20 08:32 77 99 01/14/20 07:30 73 18 01/14/20 07:06 97.9 F 73 18 144/67 96 01/14/20 03:15 17 01/14/20 01:22 98.2 F 74 130/68 97 01/13/20 23:26 17 01/13/20 18:55 98.2 F 84 17 147/70 98 01/13/20 15:00 98.3 F 91 18 151/69 92 L Intake and Output 01/13/20 01/14/20 01/14/20 22:59 06:59 14:59 Output Total 400 200 Balance -400 -200 Output: Urine 400 200 Other: Voiding Method Toilet Toilet Results - Lab Results Most recent lab results Calcium 10.2 mg/dL (8.4-10.2) 01/14/20 07:07 01/14/20 07:07 01/14/20 07:07 Assessment and Plan Plan: Assessment: 1. Acute kidney injury secondary to ATN secondary to anemia and component of cardiorenal syndrome. Also cannot rule out underlying cast nephropathy or light/heavy chain deposition disease due to multiple myeloma. Creatinine 2.02 today. 2. Rule out chronic kidney disease. Creatinine was 1.6 dated 12/19/2019. 3. Insulin-dependent diabetes mellitus. 4. Symptomatic anemia status post blood transfusion. Improved. 5. Recently diagnosed multiple myeloma. 6. Hypervolemic hyponatremia. Plan: Add Lasix 40 mg IV once daily. Low-salt diet and 1500 mL fluid resection per day. Check urinalysis. Check renal ultrasound. Lisinopril and hydrochlorothiazide held at this time. Continue to monitor renal function and urine output. Thank you for the consultation. I will continue to follow the patient with you during her hospital stay.
--- NOTE | 2020-01-14 14:41 | P.PN ---
Subjective Progress Note Date: 01/14/20 Principal diagnosis: 74 female who has been diagnosed with multiple adenoma and she has been anemic in the past and needed a couple units of blood. Patient states her doctor wante d her to get transfusion next week however she became more short of breath and was finding it difficult to move around her apartment so they told her to come into the emergency department and get a blood transfusion. Patient was transfused with 2 units of packed RBCs with hemoglobin stable above 9; patient was scheduled to be discharged this morning however patient developed shortness of breath and wheezing on minimal exertion; chest x-ray was done which did not show any pneumonia; patient did receive 1 dose of Lasix 40 mg IV which did improve symptoms; we will order BNP, troponin along with pro-calcitonin and lactic acid levels; order DuoNeb nebulizer treatments for wheezing and shortness of breath; hold discharge for another 24 hours 01/14/2020 Patient is seen and evaluated in follow-up with no acute overnight issues. Patient continues to be dyspneic with exertion and requiring oxygen via nasal cannula. Most recent chest x-ray shows continued mild pulmonary vascular congestion with a trace a right effusion. Oncology following as patient was recently diagnosed with multiple myeloma about has not started any treatments at this time. Family at the bedside. Nephrology consulted as creatinine continues to elevate and is currently 2.0 to today. Sodium slightly low at 131 and potassium is 3.8. Holding Zestoretic and will initiate IV Lasix 40 mg daily. Will repeat a.m. labs. Patient is also maintained on breathing inhalational treatments and will continue at this time. Review of systems: Constitutional: No reports of fatigue, fevers, or chills Cardiovascular: No reports of chest pain or palpitations Respiratory: Reports shortness of breath, no reports of cough GI: No reports of nausea, vomiting, or diarrhea : No reports of dysuria or retention Neurovascular: Reports some weakness, no reports of numbness All medications have been reviewed. Objective - Vital Signs Vital signs: Vital Signs Temp 97.9 F 01/14/20 07:06 Pulse 77 01/14/20 11:59 Resp 18 01/14/20 07:30 BP 144/67 01/14/20 07:06 Pulse Ox 99 01/14/20 08:32 Intake & Output 01/13/20 01/14/20 01/14/20 18:59 06:59 18:59 Output Total 600 600 Balance -600 -600 Output: Urine 600 600 Other: Voiding Method Toilet Toilet # Voids 2 - Exam General appearance: 74-year-old female sitting up in bed awake, alert and oriented 3, well-developed, well-nourished, obese. Neck: Present: normal ROM. Absent: lymphadenopathy, rigidity, thyromegaly, mild JVD noted Respiratory: Crackles and scattered rhonchi bilateral lower lung field Cardiovascular; regular; normal: S1, S2 General gastrointestinal: Present: normal bowel sounds, soft, obese Integumentary: Present: normal turgor. Absent: jaundiced, rash, ulcer Neurologic: Present: CNII-XII intact. Absent: focal deficits Musculoskeletal: Generalized weakness noted, strength equal bilaterally Psychiatric: Present: A&O x's 3, appropriate affect, intact judgment & insight - Labs CBC & Chem 7: 01/14/20 07:07 01/14/20 07:07 Labs: Abnormal Lab Results - Last 24 Hours (Table) 01/12/20 01/13/20 01/13/20 Range/Units 11:54 16:38 18:04 RBC (3.80-5.40) m/uL Hgb (11.4-16.0) gm/dL Hct (34.0-46.0) % Blast Cells % % Lymphocytes # (Manual) (1.0-4.8) k/uL Myelocytes # (Manual) (0) k/uL Promyelocytes # (Man) (0) k/uL Blast Cells # (Man) (0) k/uL Sodium (137-145) mmol/L Chloride (98-107) mmol/L BUN (7-17) mg/dL Creatinine (0.52-1.04) mg/dL Glucose (74-99) mg/dL POC Glucose (mg/dL) 221 H (75-99) mg/dL Troponin I 0.035 H* (0.000-0.034) ng/mL Crossmatch See Detail 01/13/20 01/14/20 01/14/20 Range/Units 20:19 07:01 07:07 RBC 2.93 L (3.80-5.40) m/uL Hgb 9.3 L (11.4-16.0) gm/dL Hct 28.1 L (34.0-46.0) % Blast Cells % 1 H* % Lymphocytes # (Manual) 0.78 L (1.0-4.8) k/uL Myelocytes # (Manual) 0.08 H (0) k/uL Promyelocytes # (Man) 0.04 H (0) k/uL Blast Cells # (Man) 0.04 H (0) k/uL Sodium (137-145) mmol/L Chloride (98-107) mmol/L BUN (7-17) mg/dL Creatinine (0.52-1.04) mg/dL Glucose (74-99) mg/dL POC Glucose (mg/dL) 259 H 198 H (75-99) mg/dL Troponin I (0.000-0.034) ng/mL Crossmatch 01/14/20 01/14/20 Range/Units 07:07 11:18 RBC (3.80-5.40) m/uL Hgb (11.4-16.0) gm/dL Hct (34.0-46.0) % Blast Cells % % Lymphocytes # (Manual) (1.0-4.8) k/uL Myelocytes # (Manual) (0) k/uL Promyelocytes # (Man) (0) k/uL Blast Cells # (Man) (0) k/uL Sodium 131 L (137-145) mmol/L Chloride 97 L (98-107) mmol/L BUN 39 H (7-17) mg/dL Creatinine 2.02 H (0.52-1.04) mg/dL Glucose 186 H (74-99) mg/dL POC Glucose (mg/dL) 304 H (75-99) mg/dL Troponin I (0.000-0.034) ng/mL Crossmatch Assessment and Plan Assessment: -Severe symptomatic anemia/multiple myeloma -Acute renal injury, dehydration -Mild hyponatremia -Hypertension -Diabetes mellitus type 1 -Hyperlipidemia -DVT prophylaxis -GI prophylaxis -No code Plan: Continue current medications, management, symptomatic treatment. Continue with breathing inhalational treatments. Oncology following and nephrology following as well. Will repeat a.m. labs and monitor creatinine closely. Patient will be maintained on IV Lasix 40 mg daily. Encourage the patient to increase activity as tolerated. Discussed with nursing staff about weaning oxygen as patient does not normally wear oxygen at home. Patient to continue with fluid restrictions 1500 mL's per day. Encourage incentive spirometer and use at least 10 times every hour while awake. Continue to monitor blood sugars and treat accordingly. Further recommendations to follow.
--- NOTE | 2020-01-14 15:52 | P.CONS ---
History of Present Illness - Reason for Consult Consult date: 01/14/20 Multiple myeloma, new diagnosis Requesting physician: Judy June - Chief Complaint SOB, anemia - History of Present Illness Mrs. Pierce is a very pleasant 74 year old female who saw Dr. Reno on 01/10 for her 1st visit. She was referred because of persistent/progressive anemia. Hgb was 11.1gm/dl in March/2019, down to 9.9gm/dl in July/2019 and down to 9.1gm/dl in September 2019, it is normocytic anemia, wbc 3.6K, platelets counts 207K, CMP revealed creatinine of 1.2. Had a normal colonoscopy in 2015. Laboratory work up done on 11/21/19 did not reveal evidence of deficiency anemia and no monoclonal protein. She had PRBC transfusion on 11/22/19 due to sympt omatic anemia. 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 She has symptoms of fatigue, generalized weak, exertional dyspnea, some lost of weight, chronic back pain and arthritic pain, denies blood loss, no melena, hematochezia, hematuria, she is on aspirin daily. Dr. Reno discussed with pt and daughter bone marrow biopsy confirmed multiple myeloma, high risk cytogenetics, she had no monoclonal protein detected in her blood,she may have light chain myeloma or non membership secretary myeloma. No felt to be a transplant candidate. Revlimid, dex, velcade regimen was reviewed with plans to start soon. Due to symptomatic anemia, Dr. Reno recommended she go to ER for blood transfusion, however she wanted to wait until Tuesday to have as outpatient. Unfortunately, she became more symptomatic and came to ER. She was transfused with 2 units PRBCs and then became SOB. She is still feeling a little SOB at time of exam. No other acute c/o. Review of Systems 14 point ROS is negative except as stated in HPI Past Medical History Past Medical History: Cancer, Diabetes Mellitus, GERD/Reflux, Hypertension, Musculoskeletal Disorder Additional Past Medical History / Comment(s): Leaky heart valve. IDDM Type I since 1959. Chronic back pain, herniated discs, multiple mylenoma History of Any Multi-Drug Resistant Organisms: None Reported Past Surgical History: Breast Surgery, Cholecystectomy, Hysterectomy, Orthopedic Surgery, Tubal Ligation Additional Past Surgical History / Comment(s): Bilat breast biopsy. Bilat cataracts; Laser of eyes for bleeding blood vessels. Rt Foot surgery x2. Bilat CTR. Past Anesthesia/Blood Transfusion Reactions: Motion Sickness, Postoperative Nausea & Vomiting (PONV) Past Psychological History: No Psychological Hx Reported Smoking Status: Never smoker Past Alcohol Use History: None Reported Past Drug Use History: None Reported - Past Family History Sister(s) Family Medical History: Cancer Additional Family Medical History / Comment(s): breast cancer Father Family Medical History: Pulmonary Embolus Medications and Allergies Home Medications Medication Instructions Recorded Confirmed Type Aspirin [Adult Low Dose Aspirin EC] 81 mg PO MOWEFR 11/22/19 01/12/20 History Insulin Lispro Rx Scale Form See Protocol SQ AC-TID 11/22/19 01/12/20 History [humaLOG Outpatient Scale Rx Form] Lisinopril-Hctz 20-25 mg 1 tab PO DAILY 11/22/19 01/12/20 History [Zestoretic 20-25] Omeprazole [PriLOSEC] 20 mg PO DAILY 11/22/19 01/12/20 History Pravastatin Sodium [Pravachol] 40 mg PO DAILY 11/22/19 01/12/20 History Tolterodine Tartrate [Detrol] 4 mg PO DAILY 11/22/19 01/12/20 History Ubidecarenone [Co Q-10] 100 mg PO DAILY 11/22/19 01/12/20 History amLODIPine BESYLATE [Norvasc] 5 mg PO DAILY 11/22/19 01/12/20 History Insulin Glargine [Lantus] 28 - 30 unit SQ DAILY 12/28/19 01/12/20 History calcium polycarbophiL [Fibercon] 625 mg PO DAILY 01/12/20 01/12/20 History Allergies Allergy/AdvReac Type Severity Reaction Status Date / Time No Known Allergies Allergy Verified 01/12/20 13:24 Physical Exam Vitals: Vital Signs Temp Pulse Pulse Resp BP Pulse Ox 01/14/20 08:48 77 01/14/20 08:32 77 99 01/14/20 07:30 73 18 01/14/20 07:06 97.9 F 73 18 144/67 96 01/14/20 03:15 17 01/14/20 01:22 98.2 F 74 130/68 97 01/13/20 23:26 17 01/13/20 18:55 98.2 F 84 17 147/70 98 01/13/20 15:00 98.3 F 91 18 151/69 92 L Intake and Output 01/13/20 01/14/20 01/14/20 22:59 06:59 14:59 Output Total 400 200 Balance -400 -200 Output: Urine 400 200 Other: Voiding Method Toilet Toilet - Constitutional General appearance: average body habitus, cooperative, no acute distress - EENT Eyes: anicteric sclerae, EOMI ENT: hearing grossly normal, normal oropharynx - Neck Neck: no lymphadenopathy - Respiratory Respiratory: bilateral: rales (bilaeral bases) - Cardiovascular JVD noted, fulness visible to just below angle of the jaw Rhythm: regular Heart sounds: normal: S1, S2 Abnormal Heart Sounds: systolic murmur - Gastrointestinal General gastrointestinal: no absent bowel sounds, no decreased bowel sounds, no distended, no hepatomegaly, no hyperactive bowel sounds, normal bowel sounds, no organomegaly, no rigid, no scaphoid, soft, no splenomegaly, no tenderness, no umbilical hernia, no ventral hernia - Integumentary Integumentary: pale - Neurologic Neurologic: CNII-XII intact - Musculoskeletal Musculoskeletal: strength equal bilaterally - Psychiatric Psychiatric: A&O x's 3, appropriate affect, intact judgment & insight Results CBC & Chem 7: 01/14/20 07:07 01/14/20 07:07 Labs: Abnormal Lab Results - Last 24 Hours (Table) 01/12/20 01/13/20 01/13/20 Range/Units 11:54 11:35 16:38 RBC (3.80-5.40) m/uL Hgb (11.4-16.0) gm/dL Hct (34.0-46.0) % Sodium (137-145) mmol/L Chloride (98-107) mmol/L BUN (7-17) mg/dL Creatinine (0.52-1.04) mg/dL Glucose (74-99) mg/dL POC Glucose (mg/dL) 242 H 221 H (75-99) mg/dL Troponin I (0.000-0.034) ng/mL Crossmatch See Detail 01/13/20 01/13/20 01/14/20 Range/Units 18:04 20:19 07:01 RBC (3.80-5.40) m/uL Hgb (11.4-16.0) gm/dL Hct (34.0-46.0) % Sodium (137-145) mmol/L Chloride (98-107) mmol/L BUN (7-17) mg/dL Creatinine (0.52-1.04) mg/dL Glucose (74-99) mg/dL POC Glucose (mg/dL) 259 H 198 H (75-99) mg/dL Troponin I 0.035 H* (0.000-0.034) ng/mL Crossmatch 01/14/20 01/14/20 Range/Units 07:07 07:07 RBC 2.93 L (3.80-5.40) m/uL Hgb 9.3 L (11.4-16.0) gm/dL Hct 28.1 L (34.0-46.0) % Sodium 131 L (137-145) mmol/L Chloride 97 L (98-107) mmol/L BUN 39 H (7-17) mg/dL Creatinine 2.02 H (0.52-1.04) mg/dL Glucose 186 H (74-99) mg/dL POC Glucose (mg/dL) (75-99) mg/dL Troponin I (0.000-0.034) ng/mL Crossmatch Chest x-ray: report reviewed Assessment and Plan (1) Multiple myeloma not having achieved remission Narrative/Plan: Brand new patient of Dr. Reno's. Patient was seen for her first visit 01/10. Plan was to begin RVD therapy. Medications have been ordered. Patient will begin therapy soon. Current Visit: Yes Status: Acute Priority: High Code(s): C90.00 - MULTIPLE MYELOMA NOT HAVING ACHIEVED REMISSION SNOMED Code(s): 121583710 (2) Fluid overload due to blood transfusion Narrative/Plan: Nephrology consulted for diuresis with acute renal failure secondary to myeloma Current Visit: Yes Status: Acute Priority: High Code(s): E87.71 - TRANSFUSION ASSOCIATED CIRCULATORY OVERLOAD SNOMED Code(s): 35566542 (3) Anemia Narrative/Plan: Secondary to myeloma. Recommendation would be for hemoglobin less than 7 to transfuse with 1 unit of PRBCs. Patient is going to require Lasix post transfusions. We will try to keep patient on an outpatient schedule. Hope is, that with initiation of therapy and some destruction of myeloma, patient's counts can recuperate as well as improve her kidney function. Current Visit: Yes Status: Acute Priority: High Code(s): D64.9 - ANEMIA, UNSPECIFIED SNOMED Code(s): 200946983 Plan: Doctor attests: I performed a history and physical examination of this patient, developed impression and plan of care. Discussed with dictator. I agree with dictators note, documented as a scribe.
[2020-01-14 16:38] LABS: Glucose,Whole Blood 302 mg/dL (75-99)
[2020-01-14 17:15] LABS: Appearance,Urine Clear (Clear); Bacteria,Urine Rare /hpf; Bilirubin,Urine Negative (Negative); Blood,Urine Trace (Negative); Color,Urine Light Yellow; Glucose,Urine (UA) Trace (Negative); Hyaline Casts,Urine 4 /lpf (0-2); Ketones,Urine Negative (Negative); Leukocyte Esterase,Urine Trace (Negative); Mucus,Urine Rare /hpf; Nitrite,Urine Negative (Negative); Protein,Urine 1+ (Negative); RBC,Urine 2 /hpf (0-5); Specific Gravity,Urine 1.011 (1.001-1.035); Squamous Epithelial Cell,Urine 1 /hpf (0-4); Urobilinogen,Urine <2.0 mg/dL (<2.0); WBC,Urine 5 /hpf (0-5)
--- NOTE | 2020-01-14 17:34 | US ---
EXAMINATION TYPE: US kidneys/renal and bladder DATE OF EXAM: 01/14/2020 COMPARISON: NONE CLINICAL HISTORY: 74-year-old female with acute kidney injury. TECHNIQUE: Multiple sonographic images of the kidneys and bladder are obtained. FINDINGS: EXAM MEASUREMENTS: Right Kidney: 9.9 x 3.6 x 4.3 cm Left Kidney: 10.1 x 4.2 x 4.7 cm No hydronephrosis on either side. Bladder: not visualized Bilateral Jets seen: No Incidental pleural effusion noted on the right. IMPRESSION: 1. No hydronephrosis. 2. Bladder not visualized and could not be assessed. 3. Incidental right-sided pleural effusion.
[2020-01-14 20:27] LABS: Glucose,Whole Blood 251 mg/dL (75-99)
[2020-01-15] MEDS: MELATONIN 3 MG TABLET PO SCH (03:01)
[2020-01-15 06:43] LABS: Glucose,Whole Blood 84 mg/dL (75-99)
[2020-01-15] MEDS: INSULIN ASPART (NovoLOG) 100 UNIT/ML VIAL SQ SCH ×4 (07:05→20:56)
[2020-01-15] MEDS: amLODIPine 5 MG TAB PO SCH (07:12)
[2020-01-15] MEDS: FUROSEMIDE 10 MG/ML 4 ML VIAL IV SCH (07:12)
[2020-01-15] MEDS: INSULIN DETEMIR (LEVEMIR) 100 UNIT/ML SYR SQ SCH (07:13)
[2020-01-15] MEDS: OXYBUTYNIN XL 5 MG TAB.ER.24 PO SCH (07:13)
[2020-01-15] MEDS: PRAVASTATIN SODIUM 40 MG TAB PO SCH (07:13)
[2020-01-15] MEDS: PANTOPRAZOLE 40 MG TABLET PO SCH (07:13)
[2020-01-15] MEDS: IPRATROPIUM-ALBUTEROL 3 ML NEB INHALATION PRN ×4 (07:57→21:09)
[2020-01-15 08:10] LABS: HCT 27.5 % (34.0-46.0); HGB 9.2 gm/dL (11.4-16.0); MCHC 33.5 g/dL (31.0-37.0); MCV 95.6 fL (80.0-100.0); Mean Platelet Volume 7.7; Platelet Count 169 k/uL (150-450); RBC 2.88 m/uL (3.80-5.40); RDW 15.1 % (11.5-15.5); WBC 3.6 k/uL (3.8-10.6)
[2020-01-15 08:23] LABS: Magnesium 1.4 mg/dL (1.6-2.3); Potassium 3.8 mmol/L (3.5-5.1)
[2020-01-15] MEDS ORDERED: Magnesium Replacement Protocol 1 EACH MISC MISCELLANE PRN (09:18)
[2020-01-15 09:20] LABS: Band Neutrophils % 3 %; Lymphocytes # (M) 0.54 k/uL (1.0-4.8); Metamyelocytes # (M) 0.07 k/uL (0); Metamyelocytes % 2 %; Myelocytes # (M) 0.07 k/uL (0); Myelocytes % 2 %; Neutrophils % (M) 65 %
[2020-01-15 09:21] LABS: Blast Cells # (M) 0.04 k/uL (0); Nucleated Red Blood Cells 0 /100 WBC (0-0); Poikilocytosis (M) Present; Total Cells Counted 200
[2020-01-15] MEDS ORDERED: ONDANSETRON 4 MG/2 ML VIAL IVP PRN (09:39)
[2020-01-15] MEDS: MAGNESIUM SULFATE-D5W PMX 1 GM in DEXTROSE/WATER 1 100ML.BAG IVPB SCH ×3 (10:01→13:02)
--- NOTE | 2020-01-15 10:14 | P.PN ---
Subjective Patient is seen in follow for acute kidney injury. Renal function a little worse due to diuresis. Good urine output. No active chest pain or shortness of breath. Oral intake fair. Vital signs are stable. General: The patient appeared well nourished and normally developed. HEENT: Head exam is unremarkable. Neck is without jugular venous distension. LUNGS: Breath sounds decreased. HEART: Rate and Rhythm are regular. First and second heart sounds normal. No murmurs, rubs or gallops. ABDOMEN: Soft, nontender. EXTREMITITES: No edema. Objective - Vital Signs Vital signs: Vital Signs Temp 98.2 F 01/15/20 07:00 Pulse 86 01/15/20 08:09 Resp 18 01/15/20 07:00 BP 158/70 01/15/20 07:00 Pulse Ox 97 01/15/20 07:00 Intake & Output 01/14/20 01/15/20 01/15/20 18:59 06:59 18:59 Output Total 250 Balance -250 Weight 79.1 kg Output: Urine 250 Other: Voiding Method Toilet Toilet # Voids 2 1 1 - Labs CBC & Chem 7: 01/15/20 07:17 01/15/20 07:17 Labs: Abnormal Lab Results - Last 24 Hours (Table) 01/14/20 01/14/20 01/14/20 Range/Units 07:07 11:18 16:35 WBC (3.8-10.6) k/uL RBC (3.80-5.40) m/uL Hgb (11.4-16.0) gm/dL Hct (34.0-46.0) % Blast Cells % 1 H* % Lymphocytes # (Manual) 0.78 L (1.0-4.8) k/uL Metamyelocytes # (Man) (0) k/uL Myelocytes # (Manual) 0.08 H (0) k/uL Promyelocytes # (Man) 0.04 H (0) k/uL Blast Cells # (Man) 0.04 H (0) k/uL Sodium (137-145) mmol/L Chloride (98-107) mmol/L BUN (7-17) mg/dL Creatinine (0.52-1.04) mg/dL Glucose (74-99) mg/dL POC Glucose (mg/dL) 304 H 302 H (75-99) mg/dL Magnesium (1.6-2.3) mg/dL Urine Protein (Negative) Urine Glucose (UA) (Negative) Urine Blood (Negative) Ur Leukocyte Esterase (Negative) Urine Bacteria (None) /hpf Hyaline Casts (0-2) /lpf Urine Mucus (None) /hpf 01/14/20 01/14/20 01/15/20 Range/Units 16:40 20:26 07:17 WBC (3.8-10.6) k/uL RBC (3.80-5.40) m/uL Hgb (11.4-16.0) gm/dL Hct (34.0-46.0) % Blast Cells % % Lymphocytes # (Manual) (1.0-4.8) k/uL Metamyelocytes # (Man) (0) k/uL Myelocytes # (Manual) (0) k/uL Promyelocytes # (Man) (0) k/uL Blast Cells # (Man) (0) k/uL Sodium 132 L (137-145) mmol/L Chloride 97 L (98-107) mmol/L BUN 52 H (7-17) mg/dL Creatinine 2.21 H (0.52-1.04) mg/dL Glucose 72 L (74-99) mg/dL POC Glucose (mg/dL) 251 H (75-99) mg/dL Magnesium 1.4 L (1.6-2.3) mg/dL Urine Protein 1+ H (Negative) Urine Glucose (UA) Trace H (Negative) Urine Blood Trace H (Negative) Ur Leukocyte Esterase Trace H (Negative) Urine Bacteria Rare H (None) /hpf Hyaline Casts 4 H (0-2) /lpf Urine Mucus Rare H (None) /hpf 01/15/20 Range/Units 07:17 WBC 3.6 L (3.8-10.6) k/uL RBC 2.88 L (3.80-5.40) m/uL Hgb 9.2 L (11.4-16.0) gm/dL Hct 27.5 L (34.0-46.0) % Blast Cells % 1 H* % Lymphocytes # (Manual) 0.54 L (1.0-4.8) k/uL Metamyelocytes # (Man) 0.07 H (0) k/uL Myelocytes # (Manual) 0.07 H (0) k/uL Promyelocytes # (Man) (0) k/uL Blast Cells # (Man) 0.04 H (0) k/uL Sodium (137-145) mmol/L Chloride (98-107) mmol/L BUN (7-17) mg/dL Creatinine (0.52-1.04) mg/dL Glucose (74-99) mg/dL POC Glucose (mg/dL) (75-99) mg/dL Magnesium (1.6-2.3) mg/dL Urine Protein (Negative) Urine Glucose (UA) (Negative) Urine Blood (Negative) Ur Leukocyte Esterase (Negative) Urine Bacteria (None) /hpf Hyaline Casts (0-2) /lpf Urine Mucus (None) /hpf Assessment and Plan Plan: Assessment: 1. Acute kidney injury secondary to ATN secondary to anemia and component of cardiorenal syndrome. Also cannot rule out underlying cast nephropathy or light/heavy chain deposition disease due to multiple myeloma. Creatinine 2.02 on admission and is 2.21 today. No hydronephrosis noted on kidney ultrasound. 2. Rule out chronic kidney disease. Creatinine was 1.6 dated 12/19/2019. 3. Insulin-dependent diabetes mellitus. 4. Symptomatic anemia status post blood transfusion. Improved. 5. Recently diagnosed multiple myeloma. 6. Hypervolemic hyponatremia. 7. Hypomagnesemia secondary to diuresis. Plan: Maintain Lasix 40 mg IV once daily. Low-salt diet and 1500 mL fluid resection per day. Quantify proteinuria. Lisinopril and hydrochlorothiazide held at this time. Continue to monitor renal function and urine output. Check chest x-ray tomorrow morning. Replace magnesium. 2 g IV today.
[2020-01-15 11:43] LABS: Glucose,Whole Blood 268 mg/dL (75-99)
[2020-01-15 15:10] LABS: Protein/Creatinine Ratio,Urine 2.184
--- NOTE | 2020-01-15 15:34 | P.PN ---
Subjective Progress Note Date: 01/15/20 Principal diagnosis: fluid overload In follow-up today patient is doing pretty well, she notes a strong cough, using IS. Dried mucous in her nose that was preventing her from obtaining the benefits of the oxygen she is on, she has humidification now, she was able to blow her nose well, all of this feels much better. She denies any other complaints, generalized weakness mild fatigue, shortness of breath on exertion but, nothing progressive. She denies any pain. Objective - Vital Signs Vital signs: Vital Signs Temp 97.8 F 01/15/20 14:58 Pulse 93 01/15/20 14:58 Resp 18 01/15/20 14:58 BP 145/67 01/15/20 14:58 Pulse Ox 98 01/15/20 14:58 Intake & Output 01/14/20 01/15/20 01/15/20 18:59 06:59 18:59 Output Total 350 Balance -350 Weight 79.1 kg Output: Urine 350 Other: Voiding Method Toilet Toilet # Voids 2 1 1 - Constitutional General appearance: Present: average body habitus, cooperative, no acute distress - EENT Eyes: Present: anicteric sclerae, EOMI ENT: Present: hearing grossly normal - Respiratory Respiratory: bilateral: rales (bases) - Cardiovascular Rhythm: regular Heart sounds: normal: S1, S2 Abnormal Heart Sounds: Absent: systolic murmur, diastolic murmur, rub, S3 Gallop, S4 Gallop, click, other - Peripheral edema leg Peripheral Edema: bilateral: Trace - Gastrointestinal General gastrointestinal: Present: normal bowel sounds, soft - Neurologic Neurologic: Present: CNII-XII intact - Musculoskeletal Musculoskeletal: Present: strength equal bilaterally - Psychiatric Psychiatric: Present: A&O x's 3, appropriate affect, intact judgment & insight - Labs CBC & Chem 7: 01/15/20 07:17 01/15/20 07:17 Labs: Abnormal Lab Results - Last 24 Hours (Table) 01/14/20 01/14/20 01/14/20 Range/Units 16:35 16:40 20:26 WBC (3.8-10.6) k/uL RBC (3.80-5.40) m/uL Hgb (11.4-16.0) gm/dL Hct (34.0-46.0) % Blast Cells % % Lymphocytes # (Manual) (1.0-4.8) k/uL Metamyelocytes # (Man) (0) k/uL Myelocytes # (Manual) (0) k/uL Blast Cells # (Man) (0) k/uL Sodium (137-145) mmol/L Chloride (98-107) mmol/L BUN (7-17) mg/dL Creatinine (0.52-1.04) mg/dL Glucose (74-99) mg/dL POC Glucose (mg/dL) 302 H 251 H (75-99) mg/dL Magnesium (1.6-2.3) mg/dL Urine Protein 1+ H (Negative) Urine Glucose (UA) Trace H (Negative) Urine Blood Trace H (Negative) Ur Leukocyte Esterase Trace H (Negative) Urine Bacteria Rare H (None) /hpf Hyaline Casts 4 H (0-2) /lpf Urine Mucus Rare H (None) /hpf 01/15/20 01/15/20 01/15/20 Range/Units 07:17 07:17 11:38 WBC 3.6 L (3.8-10.6) k/uL RBC 2.88 L (3.80-5.40) m/uL Hgb 9.2 L (11.4-16.0) gm/dL Hct 27.5 L (34.0-46.0) % Blast Cells % 1 H* % Lymphocytes # (Manual) 0.54 L (1.0-4.8) k/uL Metamyelocytes # (Man) 0.07 H (0) k/uL Myelocytes # (Manual) 0.07 H (0) k/uL Blast Cells # (Man) 0.04 H (0) k/uL Sodium 132 L (137-145) mmol/L Chloride 97 L (98-107) mmol/L BUN 52 H (7-17) mg/dL Creatinine 2.21 H (0.52-1.04) mg/dL Glucose 72 L (74-99) mg/dL POC Glucose (mg/dL) 268 H (75-99) mg/dL Magnesium 1.4 L (1.6-2.3) mg/dL Urine Protein (Negative) Urine Glucose (UA) (Negative) Urine Blood (Negative) Ur Leukocyte Esterase (Negative) Urine Bacteria (None) /hpf Hyaline Casts (0-2) /lpf Urine Mucus (None) /hpf Assessment and Plan (1) Multiple myeloma not having achieved remission Narrative/Plan: Brand new patient of Dr. Durans. Patient was seen for her first visit 01/10. Plan was to begin RVD therapy. Medications have been ordered. Patient will begin therapy soon. Checked with office, Rx have been sent, still pending insurance approval for specialty meds, no other info is needed from pt at this time. Current Visit: Yes Status: Acute Priority: High Code(s): C90.00 - MULTIPLE MYELOMA NOT HAVING ACHIEVED REMISSION SNOMED Code(s): 520877725 (2) Fluid overload due to blood transfusion Narrative/Plan: Nephrology consulted for diuresis with acute renal failure secondary to myeloma. Daily weights Neph ordered CXR tomorrow(bibasilar crackles today) Current Visit: Yes Status: Acute Priority: High Code(s): E87.71 - TRANSFUSION ASSOCIATED CIRCULATORY OVERLOAD SNOMED Code(s): 38577924 (3) Anemia Narrative/Plan: Secondary to myeloma. Recommendation would be for hemoglobin less than 7 to transfuse with 1 unit of PRBCs. Patient is going to require Lasix post transfusions. We will try to keep patient on an outpatient schedule. Hope is, that with initiation of therapy and some destruction of myeloma, patient's counts can recuperate as well as improve her kidney function. Current Visit: Yes Status: Acute Priority: High Code(s): D64.9 - ANEMIA, UNSPECIFIED SNOMED Code(s): 187801716
--- NOTE | 2020-01-15 15:42 | P.PN ---
Subjective Progress Note Date: 01/15/20 Principal diagnosis: 74 female who has been diagnosed with multiple adenoma and she has been anemic in the past and needed a couple units of blood. Patient states her doctor wante d her to get transfusion next week however she became more short of breath and was finding it difficult to move around her apartment so they told her to come into the emergency department and get a blood transfusion. Patient was transfused with 2 units of packed RBCs with hemoglobin stable above 9; patient was scheduled to be discharged this morning however patient developed shortness of breath and wheezing on minimal exertion; chest x-ray was done which did not show any pneumonia; patient did receive 1 dose of Lasix 40 mg IV which did improve symptoms; we will order BNP, troponin along with pro-calcitonin and lactic acid levels; order DuoNeb nebulizer treatments for wheezing and shortness of breath; hold discharge for another 24 hours 01/14/2020 Patient is seen and evaluated in follow-up with no acute overnight issues. Patient continues to be dyspneic with exertion and requiring oxygen via nasal cannula. Most recent chest x-ray shows continued mild pulmonary vascular congestion with a trace a right effusion. Oncology following as patient was recently diagnosed with multiple myeloma about has not started any treatments at this time. Family at the bedside. Nephrology consulted as creatinine continues to elevate and is currently 2.0 to today. Sodium slightly low at 131 and potassium is 3.8. Holding Zestoretic and will initiate IV Lasix 40 mg daily. Will repeat a.m. labs. Patient is also maintained on breathing inhalational treatments and will continue at this time. Review of systems: Constitutional: No reports of fatigue, fevers, or chills Cardiovascular: No reports of chest pain or palpitations Respiratory: Reports shortness of breath, no reports of cough GI: No reports of nausea, vomiting, or diarrhea : No reports of dysuria or retention Neurovascular: Reports some weakness, no reports of numbness All medications have been reviewed. 01/15/2020 She is seen and evaluated in follow-up continues to be dyspneic although has slightly improved from yesterday. Patient is maintained on IV Lasix 40 mg daily and will continue at this time. Nephrology following. Patient's creatinine slightly worsened today at 2.21 with a BUN of 52. Sodium slightly improved at 132 today. Patient is maintained on incentive spirometer and instructed to continue at least 10 times every hour while awake. She underwent a kidney ultrasound yesterday showing no signs of hydronephrosis. Patient instructed to can continue with 1500 mL fluid restriction. Currently patient denies any chest pain or palpitations. Patient states shortness of breath has slightly improved and is currently maintained on 2 L of oxygen via nasal cannula. No reports of nausea or vomiting patient is tolerating diet. Patient remains afebrile. Patient also instructed to increase activity as tolerated and will have nursing staff continue to wean FiO2 with the possibility of home O2 assessment if needed. Objective - Vital Signs Vital signs: Vital Signs Temp 98.2 F 01/15/20 07:00 Pulse 86 01/15/20 08:09 Resp 18 01/15/20 07:00 BP 158/70 01/15/20 07:00 Pulse Ox 97 01/15/20 07:00 Intake & Output 01/14/20 01/15/20 01/15/20 18:59 06:59 18:59 Output Total 250 Balance -250 Weight 79.1 kg Output: Urine 250 Other: Voiding Method Toilet Toilet # Voids 2 1 1 - Exam General appearance: 74-year-old female sitting up in bed awake, alert and oriented 3, well-developed, well-nourished, obese. Neck: Present: normal ROM. Absent: lymphadenopathy, rigidity, thyromegaly, mild JVD noted Respiratory: Diminished breath sounds bilaterally with scattered rhonchi bilateral lower lung field Cardiovascular; regular; normal: S1, S2 General gastrointestinal: Present: normal bowel sounds, soft, obese Integumentary: Present: normal turgor. Absent: jaundiced, rash, ulcer Neurologic: Present: CNII-XII intact. Absent: focal deficits Musculoskeletal: Generalized weakness noted, strength equal bilaterally Psychiatric: Present: A&O x's 3, appropriate affect, intact judgment & insight - Labs CBC & Chem 7: 01/15/20 07:17 01/15/20 07:17 Labs: Abnormal Lab Results - Last 24 Hours (Table) 01/14/20 01/14/20 01/14/20 Range/Units 07:07 16:35 16:40 WBC (3.8-10.6) k/uL RBC (3.80-5.40) m/uL Hgb (11.4-16.0) gm/dL Hct (34.0-46.0) % Blast Cells % 1 H* % Lymphocytes # (Manual) (1.0-4.8) k/uL Metamyelocytes # (Man) (0) k/uL Myelocytes # (Manual) (0) k/uL Blast Cells # (Man) (0) k/uL Sodium (137-145) mmol/L Chloride (98-107) mmol/L BUN (7-17) mg/dL Creatinine (0.52-1.04) mg/dL Glucose (74-99) mg/dL POC Glucose (mg/dL) 302 H (75-99) mg/dL Magnesium (1.6-2.3) mg/dL Urine Protein 1+ H (Negative) Urine Glucose (UA) Trace H (Negative) Urine Blood Trace H (Negative) Ur Leukocyte Esterase Trace H (Negative) Urine Bacteria Rare H (None) /hpf Hyaline Casts 4 H (0-2) /lpf Urine Mucus Rare H (None) /hpf 01/14/20 01/15/20 01/15/20 Range/Units 20:26 07:17 07:17 WBC 3.6 L (3.8-10.6) k/uL RBC 2.88 L (3.80-5.40) m/uL Hgb 9.2 L (11.4-16.0) gm/dL Hct 27.5 L (34.0-46.0) % Blast Cells % 1 H* % Lymphocytes # (Manual) 0.54 L (1.0-4.8) k/uL Metamyelocytes # (Man) 0.07 H (0) k/uL Myelocytes # (Manual) 0.07 H (0) k/uL Blast Cells # (Man) 0.04 H (0) k/uL Sodium 132 L (137-145) mmol/L Chloride 97 L (98-107) mmol/L BUN 52 H (7-17) mg/dL Creatinine 2.21 H (0.52-1.04) mg/dL Glucose 72 L (74-99) mg/dL POC Glucose (mg/dL) 251 H (75-99) mg/dL Magnesium 1.4 L (1.6-2.3) mg/dL Urine Protein (Negative) Urine Glucose (UA) (Negative) Urine Blood (Negative) Ur Leukocyte Esterase (Negative) Urine Bacteria (None) /hpf Hyaline Casts (0-2) /lpf Urine Mucus (None) /hpf 01/15/20 Range/Units 11:38 WBC (3.8-10.6) k/uL RBC (3.80-5.40) m/uL Hgb (11.4-16.0) gm/dL Hct (34.0-46.0) % Blast Cells % % Lymphocytes # (Manual) (1.0-4.8) k/uL Metamyelocytes # (Man) (0) k/uL Myelocytes # (Manual) (0) k/uL Blast Cells # (Man) (0) k/uL Sodium (137-145) mmol/L Chloride (98-107) mmol/L BUN (7-17) mg/dL Creatinine (0.52-1.04) mg/dL Glucose (74-99) mg/dL POC Glucose (mg/dL) 268 H (75-99) mg/dL Magnesium (1.6-2.3) mg/dL Urine Protein (Negative) Urine Glucose (UA) (Negative) Urine Blood (Negative) Ur Leukocyte Esterase (Negative) Urine Bacteria (None) /hpf Hyaline Casts (0-2) /lpf Urine Mucus (None) /hpf Assessment and Plan Assessment: -Severe symptomatic anemia/multiple myeloma -Acute renal injury, dehydration -Mild hyponatremia -Hypertension -Diabetes mellitus type 1 -Hyperlipidemia -DVT prophylaxis -GI prophylaxis -No code Plan: Continue current medications, management, symptomatic treatment. Continue with breathing inhalational treatments. Oncology following and nephrology following as well. Will repeat a.m. labs and monitor creatinine closely. Patient will be maintained on IV Lasix 40 mg daily. Encourage the patient to increase activity as tolerated. Discussed with nursing staff about weaning oxygen as patient does not normally wear oxygen at home. Patient to continue with fluid restrictions 1500 mL's per day. Encourage incentive spirometer and use at least 10 times every hour while awake. Continue to monitor blood sugars and treat accordingly. Further recommendations to follow.
[2020-01-15 16:43] LABS: Glucose,Whole Blood 225 mg/dL (75-99)
[2020-01-15 20:26] LABS: Glucose,Whole Blood 162 mg/dL (75-99)
[2020-01-16] MEDS: MELATONIN 3 MG TABLET PO SCH (01:28)
[2020-01-16 06:42] LABS: Glucose,Whole Blood 92 mg/dL (75-99)
[2020-01-16] MEDS: INSULIN ASPART (NovoLOG) 100 UNIT/ML VIAL SQ SCH ×2 (06:44→12:09)
[2020-01-16 07:01] VITALS: BP 152/73; RESP 14; TEMP 98.3
[2020-01-16] MEDS: INSULIN DETEMIR (LEVEMIR) 100 UNIT/ML SYR SQ SCH (07:56)
[2020-01-16] MEDS: PRAVASTATIN SODIUM 40 MG TAB PO SCH (07:56)
[2020-01-16] MEDS: PANTOPRAZOLE 40 MG TABLET PO SCH (07:56)
[2020-01-16] MEDS: OXYBUTYNIN XL 5 MG TAB.ER.24 PO SCH (07:56)
[2020-01-16] MEDS: amLODIPine 5 MG TAB PO SCH (07:57)
[2020-01-16] MEDS: FUROSEMIDE 10 MG/ML 4 ML VIAL IV SCH (07:57)
[2020-01-16] MEDS: ASPIRIN 81 MG PO SCH (08:10)
[2020-01-16] MEDS: IPRATROPIUM-ALBUTEROL 3 ML NEB INHALATION PRN ×2 (08:58→13:03)
[2020-01-16 09:04] LABS: HCT 28.2 % (34.0-46.0); HGB 9.2 gm/dL (11.4-16.0); MCH 31.6 pg (25.0-35.0); MCHC 32.7 g/dL (31.0-37.0); MCV 96.5 fL (80.0-100.0); Mean Platelet Volume 7.3; Platelet Count 170 k/uL (150-450); RBC 2.92 m/uL (3.80-5.40); WBC 2.9 k/uL (3.8-10.6)
--- NOTE | 2020-01-16 09:06 | XR ---
EXAMINATION TYPE: XR chest 2V DATE OF EXAM: 01/16/2020 COMPARISON: 01/14/2020 INDICATION: Short of breath TECHNIQUE: Frontal and lateral views of the chest are obtained. FINDINGS: The heart size is normal. The pulmonary vasculature is normal. There is a 1.1 cm nodule left upper lobe. Mild increased lung markings at bilateral lung base. Correl ate for atelectasis. Right lower lobe infiltrate is slightly improved and may be some resolving pneum onia.. IMPRESSION: 1. Bibasilar infiltrates. Correlate for atelectasis. 2. Improving right lower lobe infiltrate could reflect some resolving pneumonia. 3. Stable nodule left upper lobe
[2020-01-16 09:17] LABS: Magnesium 2.1 mg/dL (1.6-2.3); Potassium 3.6 mmol/L (3.5-5.1)
--- NOTE | 2020-01-16 10:18 | P.PN ---
Subjective Patient is seen in follow for acute kidney injury. Renal function a little worse due to diuresis. Good urine output. No active chest pain or shortness of breath. Oral intake fair. Overall feels better today. Vital signs are stable. General: The patient appeared well nourished and normally developed. HEENT: Head exam is unremarkable. Neck is without jugular venous distension. LUNGS: Breath sounds decreased. HEART: Rate and Rhythm are regular. First and second heart sounds normal. No murmurs, rubs or gallops. ABDOMEN: Soft, nontender. EXTREMITITES: No edema. Objective - Vital Signs Vital signs: Vital Signs Temp 98.3 F 01/16/20 07:00 Pulse 85 01/16/20 09:16 Resp 14 01/16/20 07:00 BP 152/73 01/16/20 07:00 Pulse Ox 98 01/16/20 09:08 Intake & Output 01/15/20 01/16/20 01/16/20 18:59 06:59 18:59 Intake Total 300 Output Total 350 300 Balance -350 0 Weight 79.1 kg 79.2 kg Intake: Oral 300 Output: Urine 350 300 Other: Voiding Method Toilet # Voids 1 1 - Labs CBC & Chem 7: 01/16/20 08:27 01/16/20 08:27 Labs: Abnormal Lab Results - Last 24 Hours (Table) 01/15/20 01/15/20 01/15/20 Range/Units 11:38 16:41 20:22 WBC (3.8-10.6) k/uL RBC (3.80-5.40) m/uL Hgb (11.4-16.0) gm/dL Hct (34.0-46.0) % Sodium (137-145) mmol/L BUN (7-17) mg/dL Creatinine (0.52-1.04) mg/dL Glucose (74-99) mg/dL POC Glucose (mg/dL) 268 H 225 H 162 H (75-99) mg/dL 01/16/20 01/16/20 Range/Units 08:27 08:27 WBC 2.9 L (3.8-10.6) k/uL RBC 2.92 L (3.80-5.40) m/uL Hgb 9.2 L (11.4-16.0) gm/dL Hct 28.2 L (34.0-46.0) % Sodium 131 L (137-145) mmol/L BUN 54 H (7-17) mg/dL Creatinine 2.44 H (0.52-1.04) mg/dL Glucose 146 H (74-99) mg/dL POC Glucose (mg/dL) (75-99) mg/dL Assessment and Plan Plan: Assessment: 1. Acute kidney injury secondary to ATN secondary to anemia and component of cardiorenal syndrome. Also cannot rule out underlying cast nephropathy or ligh t/heavy chain deposition disease due to multiple myeloma. UPC 2.1 g. Creatinine 2.02 on admission and is 2.44 today. No hydronephrosis noted on kidney ultrasound. 2. Rule out chronic kidney disease. Creatinine was 1.6 dated 12/19/2019. 3. Insulin-dependent diabetes mellitus. 4. Symptomatic anemia status post blood transfusion. Improved. 5. Recently diagnosed multiple myeloma. 6. Hypervolemic hyponatremia. 7. Hypomagnesemia secondary to diuresis. Improved post replacement. Plan: Stop Lasix. Continue to monitor renal function and urine output.
[2020-01-16 10:31] LABS: Band Neutrophils % 3 %; Lymphocytes # (M) 0.84 k/uL (1.0-4.8); Monocytes # (M) 0.09 k/uL (0-1.0); Myelocytes # (M) 0.03 k/uL (0); Myelocytes % 1 %; Neutrophils % (M) 64 %; Nucleated Red Blood Cells 0 /100 WBC (0-0); Total Cells Counted 100
[2020-01-16 11:10] LABS: Glucose,Whole Blood 229 mg/dL (75-99)
[2020-01-16 13:07] VITALS: PULSE 92
--- NOTE | 2020-01-16 14:49 | P.DS ---
Providers Date of admission: 01/14/20 09:19 Expected date of discharge: 01/16/20 Attending physician: Rene Castro MD Consults: 01/12/20 18:28 Consult Physician Urgent Consulting Provider: Alexander Reno Consult Reason/Comments: known to patient Do you want consulting provider notified?: Yes 01/14/20 10:07 Consult Physician Routine Consulting Provider: Dana Morris Consult Reason/Comments: renal failure 2/2 multiple myeloma, needing diruesis Do you want consulting provider notified?: Yes Primary care physician: Zaria Sands Hospital Course: Final diagnosis -Severe symptomatic anemia/multiple myeloma -Acute renal injury, dehydration -Mild hyponatremia -Hypertension -Diabetes mellitus type 1 -Hyperlipidemia -DVT prophylaxis -GI prophylaxis -No code Discharge disposition Patient is being discharged in a stable condition with guarded prognosis to home. Patient will follow-up with Dr. Sands in the outpatient setting upon discharge. Patient also instructed to follow-up with oncology Dr. Reno in the outpatient setting. Total time taken is greater than 35 minutes. History of present illness This is a 74-year-old female who was recently admitted with anemia and shortness of breath and was being closely monitored. Patient was recently diagnosed with multiple myeloma and is been anemic requiring transfusions. Patient is following with Dr. Garza oncology in the outpatient setting and awaiting for authorization from insurance to begin treatments. During hospitalization patient was transfused with 2 units and hemoglobin is currently stable at 9.2. During hospitalization patient continue to have some volume overload and was maintained on IV Lasix 40 mg and followed by nephrology. Discussed with nephrology about continuing Lasix and patient will continue transfusions if hemoglobin is less than 7 and is transfused will need Lasix at that point. Discussed with the patient at length about continuing to increase activity as tolerated along with continuing with the use of incentive spirometer at least 10 times every hour while awake. Also discussed with oncology and they are aware of Lasix with transfusions. Currently no reports of chest pain, shortness of breath, or palpitations. Patient is afebrile. No reports of nausea or vomiting and patient is tolerating diet. Patient will be discharged home today. On exam vital signs are stable. Temp is 98.3F, pulse is 80, respirations are 14, blood pressure is 152/73, oxygen saturation is 98% on room air. Cardio S1, S2 are muffled. Respiratory system shows diminished breath sounds at the bases with no wheezing or rhonchi noted. Abdomen is soft and nontender. Nervous system shows no focal deficits. Please refer to medication reconciliation sheet for a list of medications. Patient Condition at Discharge: Fair Plan - Discharge Summary Discharge Rx Participant: No New Discharge Prescriptions: Continue Omeprazole [PriLOSEC] 20 mg PO DAILY Pravastatin Sodium [Pravachol] 40 mg PO DAILY Insulin Lispro Rx Scale Form [humaLOG Outpatient Scale Rx Form] See Protocol SQ AC-TID amLODIPine BESYLATE [Norvasc] 5 mg PO DAILY Ubidecarenone [Co Q-10] 100 mg PO DAILY Tolterodine Tartrate [Detrol] 4 mg PO DAILY Aspirin [Adult Low Dose Aspirin EC] 81 mg PO MOWEFR Insulin Glargine [Lantus] 28 - 30 unit SQ DAILY calcium polycarbophiL [Fibercon] 625 mg PO DAILY Discontinued Lisinopril-Hctz 20-25 mg [Zestoretic 20-25] 1 tab PO DAILY Discharge Medication List Aspirin [Adult Low Dose Aspirin EC] 81 mg PO MOWEFR 11/22/19 [History] Insulin Lispro Rx Scale Form [humaLOG Outpatient Scale Rx Form] See Protocol SQ AC-TID 11/22/19 [History] Omeprazole [PriLOSEC] 20 mg PO DAILY 11/22/19 [History] Pravastatin Sodium [Pravachol] 40 mg PO DAILY 11/22/19 [History] Tolterodine Tartrate [Detrol] 4 mg PO DAILY 11/22/19 [History] Ubidecarenone [Co Q-10] 100 mg PO DAILY 11/22/19 [History] amLODIPine BESYLATE [Norvasc] 5 mg PO DAILY 11/22/19 [History] Insulin Glargine [Lantus] 28 - 30 unit SQ DAILY 12/28/19 [History] calcium polycarbophiL [Fibercon] 625 mg PO DAILY 01/12/20 [History] Follow up Appointment(s)/Referral(s): Zaria Sands MD [Primary Care Provider] - 1-2 days Ambulatory/Diagnostic Orders: Basic Metabolic Panel [LAB.AMB] Time Frame: 3 Days, Location: None Selected Complete Blood Count w/diff [LAB.AMB] Time Frame: 3 Days, Location: None Selected Patient Instructions/Handouts: Dyspnea (DC), Anemia (DC) Activity/Diet/Wound Care/Special Instructions: Activity Limited until follow-up Continue current diabetic diet Continue to monitor blood sugars before meals at bedtime and keep a diary for primary follow-up Continue with 1500 mL fluid restrictions daily Elevate lower extremities while at rest Continue to use incentive spirometer at least 10 times every hour while awake Follow-up with primary care provider upon discharge Follow-up with oncology in the outpatient setting If patient is to receive transfusions, will need Lasix after the transfusion Discharge Disposition: HOME SELF-CARE
--- NOTE | 2020-01-16 15:25 | P.PN ---
Subjective Progress Note Date: 01/16/20 Principal diagnosis: fluid overload In f/u today pt continues to have cough, off of O2, no other c/o, tolerating oral intake, urinating. Objective - Vital Signs Vital signs: Vital Signs Temp 98.3 F 01/16/20 07:00 Pulse 85 01/16/20 09:16 Resp 14 01/16/20 07:00 BP 152/73 01/16/20 07:00 Pulse Ox 98 01/16/20 09:08 Intake & Output 01/15/20 01/16/20 01/16/20 18:59 06:59 18:59 Intake Total 300 Output Total 350 300 Balance -350 0 Weight 79.1 kg 79.2 kg Intake: Oral 300 Output: Urine 350 300 Other: Voiding Method Toilet # Voids 1 1 - Constitutional General appearance: Present: average body habitus, cooperative, no acute distress - EENT Eyes: Present: anicteric sclerae, EOMI ENT: Present: hearing grossly normal - Respiratory Respiratory: bilateral: diminished (bases) - Cardiovascular Heart sounds: normal: S1, S2 - Peripheral edema foot Peripheral Edema: bilateral: None - Musculoskeletal Musculoskeletal: Present: strength equal bilaterally - Psychiatric Psychiatric: Present: A&O x's 3, appropriate affect, intact judgment & insight - Labs CBC & Chem 7: 01/16/20 08:27 01/16/20 08:27 Labs: Abnormal Lab Results - Last 24 Hours (Table) 01/15/20 01/15/20 01/15/20 Range/Units 11:38 16:41 20:22 WBC (3.8-10.6) k/uL RBC (3.80-5.40) m/uL Hgb (11.4-16.0) gm/dL Hct (34.0-46.0) % Lymphocytes # (Manual) (1.0-4.8) k/uL Myelocytes # (Manual) (0) k/uL Sodium (137-145) mmol/L BUN (7-17) mg/dL Creatinine (0.52-1.04) mg/dL Glucose (74-99) mg/dL POC Glucose (mg/dL) 268 H 225 H 162 H (75-99) mg/dL 01/16/20 01/16/20 Range/Units 08:27 08:27 WBC 2.9 L (3.8-10.6) k/uL RBC 2.92 L (3.80-5.40) m/uL Hgb 9.2 L (11.4-16.0) gm/dL Hct 28.2 L (34.0-46.0) % Lymphocytes # (Manual) 0.84 L (1.0-4.8) k/uL Myelocytes # (Manual) 0.03 H (0) k/uL Sodium 131 L (137-145) mmol/L BUN 54 H (7-17) mg/dL Creatinine 2.44 H (0.52-1.04) mg/dL Glucose 146 H (74-99) mg/dL POC Glucose (mg/dL) (75-99) mg/dL - Imaging and Cardiology Chest x-ray: report reviewed Assessment and Plan (1) Multiple myeloma not having achieved remission Narrative/Plan: Brand new patient of Dr. Reno's. Patient was seen for her first visit 01/10. Plan is to begin RVD therapy. Medications have been ordered. Patient will begin therapy soon. Checked with office, Rx have been sent, still pending insurance approval for specialty meds, no other info is needed from pt at this time. Status: Acute Priority: High Code(s): C90.00 - MULTIPLE MYELOMA NOT HAVING ACHIEVED REMISSION SNOMED Code(s): 276202142 (2) Fluid overload due to blood transfusion Narrative/Plan: Nephrology consulted for diuresis with acute renal failure secondary to myeloma. Daily weights CXR stable Status: Acute Priority: High Code(s): E87.71 - TRANSFUSION ASSOCIATED CIRCULATORY OVERLOAD SNOMED Code(s): 55381454 (3) Anemia Narrative/Plan: Secondary to myeloma. Recommendation would be for hemoglobin less than 7 to transfuse with 1 unit of PRBCs. Patient is going to require Lasix post transfusions. We will try to keep patient on an outpatient schedule. Hope is, that with initiation of therapy and some destruction of myeloma, patient's counts can recuperate as well as improve her kidney function. Hgb 9.2 today, no transfusion needed Status: Acute Priority: High Code(s): D64.9 - ANEMIA, UNSPECIFIED SNOMED Code(s): 396515274 Plan: Discussed plan of care with IMEkaterina Berrios from Hem Onc to DC, we will plan for lab f/u outpatient. Will request Nephrology to follow pt with us
== END 2020-01-16 14:03 | disposition home or self-care (01) | DRG 840 ==
LOC: EC 11:16 → 1SOBS 13:05 → 4SSUR 13:44 → OBSVTOIN 01-14 09:19
PROVIDERS: ADMIT Internal Medicine; ATTEND Internal Medicine
PROC: 30233N1 Transfusion of Nonautologous Red Blood Cells into Peripheral Vein, Percutaneous Approach (ICD-10-PCS; principal; 2020-01-14)
DX: C90.00 Multiple myeloma not having achieved remission (principal); N17.0 Acute kidney failure with tubular necrosis; E87.1 Hypo-osmolality and hyponatremia; D63.0 Anemia in neoplastic disease; E78.5 Hyperlipidemia, unspecified; E86.0 Dehydration; R09.89 Other specified symptoms and signs involving the circulatory and respiratory systems; E83.42 Hypomagnesemia; T50.2X5A Adverse effect of carbonic-anhydrase inhibitors, benzothiadiazides and other diuretics, initial encounter; I10 Essential (primary) hypertension; E10.9 Type 1 diabetes mellitus without complications; E87.71 Transfusion associated circulatory overload; K21.9 Gastro-esophageal reflux disease without esophagitis; Z90.49 Acquired absence of other specified parts of digestive tract; Z90.710 Acquired absence of both cervix and uterus; Z98.890 Other specified postprocedural states; Z79.4 Long term (current) use of insulin; Z79.82 Long term (current) use of aspirin; Z79.899 Other long term (current) drug therapy; Z98.41 Cataract extraction status, right eye; Z98.42 Cataract extraction status, left eye; Z98.51 Tubal ligation status; Z80.3 Family history of malignant neoplasm of breast
CPT/HCPCS: 36415; 36430; 71045; 71046; 76770; 80048; 80053; 81001; 82570; 83605; 83735; 83880; 84156; 84484; 85025; 85610; 85730; 86850; 86900; 86901; 86920; 93005; 94640; 94760; 99285

== ENCOUNTER → 2020-01-18 | Outpatient (CLI) | payer MEDICARE | END | disposition home or self-care (01) | LOC: RADPETMAIN 16:14 | PROVIDERS: ATTEND Internal Medicine Hematology & Oncology | DX: Z53.9 Procedure and treatment not carried out, unspecified reason (principal) ==

== ENCOUNTER → 2020-02-08 | Outpatient (CLI) | payer MEDICARE ==
--- NOTE | 2020-02-08 17:44 | XR ---
EXAMINATION TYPE: XR bone survey complete DATE OF EXAM: 02/08/2020 COMPARISON: None HISTORY: Multiple myeloma TECHNIQUE: Images obtained over multiple axial and appendicular skeleton. FINDINGS: Chest x-ray: There is elevation left diaphragm. There is a 1.1 cm nodule in the left upper lung. Mil d infiltrate is at the right base. Cervical spine: Dense carotid artery calcification is evident. Facet changes are present. No suspicio us lytic or sclerotic lesions are evident. Skull: Skull is examined in 2 views. No suspicious lytic or sclerotic lesions. Sella is unremarkable. Humeri: No suspicious sclerotic lesions. Some subtle moth-eaten lysis of the proximal to mid diaphysi s right humerus may be present. Pelvis: Degenerative joint changes at the bilateral hips. Degenerative changes are within the lumbar spine. Some sacroiliac joint degenerative changes are present. No suspicious lytic lesions are identi fied. Appears to be some air over the left iliac wing likely within a loop of bowel. Femur: Degenerative changes are at the right knee. Degenerative changes are at the bilateral hips. Lumbar spine: Scoliosis present. There is compression of L1 and T12. Degenerative disc changes are pr esent. Scoliosis is present. 1 spondylolisthesis of L4 anterior on L5 is present. Degenerative disc c hanges are within the lumbar spine. Thoracic spine: There is compression of T6 and T10. Compression T12 is present. There is scoliosis pr esent. IMPRESSION: 1. There may be some subtle lytic lesions within the proximal right diaphyseal humerus. 2. Remaining changes appear to be chronic degenerative and vascular calcifications.
== END | disposition home or self-care (01) ==
LOC: RADXRMAIN 13:30
PROVIDERS: ATTEND Internal Medicine Hematology & Oncology
DX: C90.00 Multiple myeloma not having achieved remission (principal); D64.9 Anemia, unspecified; Z71.3 Dietary counseling and surveillance; E11.9 Type 2 diabetes mellitus without complications
CPT/HCPCS: 77075

== ENCOUNTER → 2020-03-21 | Outpatient (CLI) | payer MEDICARE ==
[2020-03-21 15:30] LABS: HCT 32.9 % (34.0-46.0); HGB 10.8 gm/dL (11.4-16.0); MCHC 32.9 g/dL (31.0-37.0); MCV 100.4 fL (80.0-100.0); Macrocytosis Slight; Mean Platelet Volume 9.1; Platelet Count 220 k/uL (150-450); RBC 3.28 m/uL (3.80-5.40); RDW 14.3 % (11.5-15.5); WBC 3.4 k/uL (3.8-10.6)
[2020-03-22 02:00] LABS: % Iron Saturation 7.61 (12.00-45.00); African American GFR (CKD) 56.5 (60.0-200.0); Albumin/Globulin Ratio 1.54 (1.60-3.17); Anion Gap 7.2 mmol/L (4.00-12.00); BUN/Creat Ratio 21.82 Ratio (12.00-20.00); Calcium 9.6 mg/dL (8.7-10.3); Carbon Dioxide 24.8 mmol/L (21.6-31.8); Globulin 2.6 g/dL (1.6-3.3); Magnesium 1.7 mg/dL (1.5-2.4); Non-African American GFR(CKD) 48.7 (60.0-200.0); Phosphorus 3.3 mg/dL (2.4-5.1); Potassium 4.7 mmol/L (3.5-5.5); Total Bilirubin 0.5 mg/dL (0.2-1.2); Total Protein 6.6 g/dL (6.2-8.2)
== END | disposition home or self-care (01) ==
LOC: LABWHC1 14:28
PROVIDERS: ATTEND Nurse Practitioner Family
DX: N17.9 Acute kidney failure, unspecified (principal); E55.9 Vitamin D deficiency, unspecified; N25.81 Secondary hyperparathyroidism of renal origin; D64.9 Anemia, unspecified; R80.9 Proteinuria, unspecified
CPT/HCPCS: 36415; 80053; 82306; 82728; 83540; 83550; 83735; 83970; 84100; 85027

== ENCOUNTER → 2020-08-04 | Outpatient (CLI) | payer MEDICARE ==
--- NOTE | 2020-08-05 15:52 | US ---
EXAMINATION TYPE: US kidneys/renal and bladder DATE OF EXAM: 08/04/2020 COMPARISON: 01/14/2020 CLINICAL HISTORY: N18.32 CHR KIDNEY DISEASE. Stage 3, diabetic EXAM MEASUREMENTS: Right Kidney: 9.6 x 4.7 x 3.7 cm Left Kidney: 9.1 x 4.6 x 4.0 cm Post Void Residual Volume: 7.1 mL Right Kidney: hyperechoic parallel vessel horn suggests vessel wall calcifications throughout kidney Left Kidney: hyperechoic parallel vessel horn suggests vessel wall calcifications throughout kidney Bladder: wnl Bilateral Jets seen: left ureteral jet was not seen after 3 minute observation Normal Post Void Residual: yes There is no evidence for hydronephrosis at this point in time. No masses are identified. The urinary bladder is anechoic. Only right ureteral jet was seen. IMPRESSION: 1. No suspicious acute changes
== END ==
LOC: RADUSWWP 16:07
PROVIDERS: ATTEND Internal Medicine
DX: N18.32 Chronic kidney disease, stage 3b (principal); E11.22 Type 2 diabetes mellitus with diabetic chronic kidney disease
CPT/HCPCS: 76770

== ENCOUNTER 2021-06-22 05:46 | Day surgery (SDC) | payer MEDICARE ==
[2021-06-17 15:24] VITALS: BMI 31.1
[2021-06-22] MEDS ORDERED: LIDOCAINE 1% (10MG/ML) FOR IV START INTRADERMA ONE (06:45)
[2021-06-22 06:50] VITALS: TEMP 97.8
[2021-06-22 06:56] LABS: Glucose,Whole Blood 157 mg/dL (75-99)
[2021-06-22] MEDS ORDERED: PROPOFOL 10 MG/ML 50 ML VIAL IV ONE (07:09)
[2021-06-22 08:01] LABS: Basophils % (A) 1 %; Eosinophils # (A) 0.2 k/uL (0-0.7); Eosinophils % (A) 4 %; HCT 35.5 % (34.0-46.0); HGB 11.7 gm/dL (11.4-16.0); Lymphocytes # (A) 0.7 k/uL (1.0-4.8); Lymphocytes % (A) 18 %; MCH 32.9 pg (25.0-35.0); MCHC 32.9 g/dL (31.0-37.0); MCV 99.9 fL (80.0-100.0); Macrocytosis Slight; Mean Platelet Volume 10.7; Monocytes # (A) 0.3 k/uL (0-1.0); Monocytes % (A) 8 %; Neutrophils # (A) 2.6 k/uL (1.3-7.7); Neutrophils % (A) 65 %; Platelet Count 195 k/uL (150-450); RBC 3.55 m/uL (3.80-5.40); Reticulocyte % 2.7 % (0.5-2.0)
[2021-06-22 08:04] VITALS: BP 158/74; PULSE 69; RESP 20
--- NOTE | 2021-06-22 09:37 | PCN ---
PROCEDURE NOTE DATE OF SERVICE: 06/22/2021 PROCEDURE: Bone marrow aspirate and biopsy. INDICATION: Followup on multiple myeloma treatment. PROCEDURE DESCRIPTION: After obtaining consent from the patient, the procedure was performed in the endoscopy suite. Under general anesthesia performed by the anesthesia team, the patient was put in the left lateral decubital position. iliac crest was localized. Skin was cleansed with ChloraPrep. All sterile procedures were followed. Two mL of 2% xylocaine was used for local anesthetic. Monoject needle was inserted; 15 mL aspirate and 1 cm core biopsy were obtained without any difficulties. Pressure was applied . There was negligible blood loss. Patient tolerated the procedure very well without any immediate complications. MMODL / IJN: [id number] /
== END 2021-06-22 08:19 | disposition home or self-care (01) ==
LOC: OR 05:46
PROVIDERS: ATTEND Internal Medicine Hematology & Oncology
DX: C90.00 Multiple myeloma not having achieved remission (principal)
CPT/HCPCS: 38222; 85025; 85045; J2704

== ENCOUNTER → 2022-03-22 | Outpatient (CLI) | payer MEDICARE ==
[~2022-03-22] MED LIST changes: -LACTATED RINGERS 1,000 ML IV SCH; +TIXAGEVIMAB/CILGAVIMAB (EUA) 300 MG/3 ML COMBO.PKG IM NR
[2022-03-22 13:18] VITALS: PULSE 72; RESP 16; TEMP 97.9
[2022-03-22 14:03] VITALS: BP 131/74
== END ==
LOC: PROCWHC3 12:40
PROVIDERS: ATTEND Internal Medicine Hematology & Oncology
DX: Z23 Encounter for immunization (principal)
CPT/HCPCS: Q0220; M0220

== ENCOUNTER → 2023-01-17 | Outpatient (CLI) | payer MEDICARE ==
[2023-01-17 20:53] LABS: % Iron Saturation 24.76 (12.00-45.00); ALT 11 U/L (8-44); AST 19 U/L (13-35); Albumin 4.2 d/dL (3.8-4.9); Albumin/Globulin Ratio 1.75 Ratio (1.60-3.17); Alkaline Phosphatase 88 U/L (41-126); BUN/Creat Ratio 25.69 Ratio (12.00-20.00); Blood Urea Nitrogen 33.4 mg/dL (9.0-27.0); Calcium 10.5 mg/dL (8.7-10.3); Carbon Dioxide 24.9 mmol/L (21.6-31.8); Chloride 101 mmol/L (96-109); Globulin 2.4 d/dL (1.6-3.3); Glucose 81 mg/dL (70-110); Iron 76 UG/DL (50-170); Magnesium 1.9 mg/dL (1.5-2.4); Phosphorus 3.1 mg/dL (2.4-5.1); Potassium 4.7 mmol/L (3.5-5.5); Sodium 136 mmol/L (135-145); Total Bilirubin 0.4 mg/dL (0.3-1.2); Total Iron Binding Capacity 307 UG/DL (228-460); Total Protein 6.6 d/dL (6.2-8.2)
[2023-01-17 20:58] LABS: Basophils # (A) 0.05 X 10*3/uL (0.00-0.10); Basophils % (A) 0.9 %; Eosinophils # (A) 0.14 X 10*3/uL (0.04-0.35); Eosinophils % (A) 2.5 %; Lymphocytes # (A) 1.44 X 10*3/uL (0.90-5.00); Lymphocytes % (A) 25.5 %; MCH 32.3 pg (27.0-32.0); MCHC 33.3 d/dL (32.0-37.0); MCV 96.8 FL (80.0-97.0); Mean Platelet Volume 11.7 FL (9.5-12.2); Monocytes # (A) 0.67 X 10*3/uL (0.20-1.00); Monocytes % (A) 11.9 %; NRBC Per 100 WBC 0 X 10*3/uL (0.00-0.01); Neutrophils # (A) 3.32 X 10*3/uL (1.80-7.70); Neutrophils % (A) 58.8 %; Platelet Count 245 X 10*3/uL (140-440); RBC 3.72 X 10*6/uL (4.10-5.20); RDW 13.8 % (11.5-14.5); WBC 5.64 X 10*3/uL (4.50-10.00)
[2023-01-18 04:16] LABS: Appearance,Urine Clear (Clear); Bilirubin,Urine Negative (Negative); Blood,Urine Negative (Negative); Color,Urine Yellow (Yellow); Ketones,Urine Negative (Negative); Nitrite,Urine Negative (Negative); Specific Gravity,Urine 1.007 (1.001-1.030); Urobilinogen,Urine 0.2 E.U./DL
[2023-01-18 08:12] LABS: Microalbumin Creatinine Ratio <33 mg/g Cr (0-30)
[2023-01-18 08:57] LABS: Angiotensin-1 Converting Enz. <3 U/L (8-52)
[2023-01-18 20:08] LABS: Vitamin D, 1, 25-Dihydroxy 49 pg/mL (20 - 79)
== END | disposition home or self-care (01) ==
LOC: LABWHC1 15:34
PROVIDERS: ATTEND Nurse Practitioner Family
DX: E55.9 Vitamin D deficiency, unspecified (principal); N18.32 Chronic kidney disease, stage 3b; N25.81 Secondary hyperparathyroidism of renal origin; M10.9 Gout, unspecified; D63.0 Anemia in neoplastic disease; N39.0 Urinary tract infection, site not specified
CPT/HCPCS: 36415; 80053; 81003; 82043; 82164; 82306; 82570; 82652; 82728; 83540; 83550; 83735; 83970; 84100; 84550; 85025

== ENCOUNTER → 2023-07-04 | Outpatient (CLI) | payer MEDICARE ==
--- NOTE | 2023-07-04 11:40 | US ---
EXAMINATION TYPE: US arterial LE multi level DATE OF EXAM: 07/04/2023 9:19 AM CLINICAL INDICATION: Female, 77 years old with history of E11.40 TYPE 2 DIABETES MELLITUS WITH DIAB E 11.59; Pre testing for right toe surgery scheduled for July History of: Smoker: Never Hypertension: Yes Diabetic: Yes Hyperlipidemia: Yes TIA/CVA: No Previous Vascular Surgery: No HI: No Doppler Waveforms: Right: Monophasic Left: Multiphasic Right Brachial Pressure: 198 Left Brachial Pressure: 190 Ankle-Brachial Indices: Right: 0.70 Left: 0.97 IMPRESSION: Ankle-brachial indices suggestive severe right and normal left peripheral vascular disease.
== END | disposition home or self-care (01) ==
LOC: RADUSWWP 08:33
PROVIDERS: ATTEND Podiatrist
DX: E11.40 Type 2 diabetes mellitus with diabetic neuropathy, unspecified (principal); E11.59 Type 2 diabetes mellitus with other circulatory complications; I10 Essential (primary) hypertension; E78.5 Hyperlipidemia, unspecified
CPT/HCPCS: 93923

== ENCOUNTER → 2024-01-03 | Outpatient (CLI) | payer MEDICARE | END | disposition home or self-care (01) | LOC: LABPRL 12:34 | PROVIDERS: ATTEND Internal Medicine Hematology & Oncology | DX: C90.00 Multiple myeloma not having achieved remission (principal); D64.9 Anemia, unspecified; E11.9 Type 2 diabetes mellitus without complications; I10 Essential (primary) hypertension; K21.9 Gastro-esophageal reflux disease without esophagitis; R19.7 Diarrhea, unspecified; Z71.3 Dietary counseling and surveillance | CPT/HCPCS: 80053; 82784; 83883; 84165; 86334 ==

== ENCOUNTER → 2024-11-16 | Outpatient (CLI) | payer MEDICARE ==
--- NOTE | 2024-11-19 11:15 | PE ---
EXAMINATION TYPE: PET CT fusion skull to thigh DATE OF EXAM: 11/16/2024 COMPARISON: Bone survey 02/08/2020. No more recent prior CT evident. Prior PET/CT: No prior PET/CT available at this location. 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 Images are reviewed on the computer in the coronal, axial, a nd sagittal planes. Reconstructed rotating images are created on independent workstation and reviewe d on the computer. A localization and attenuation correction CT is performed in conjunction with e PET scan. DLP: 1082 mGycm SCAN: Subsequent Blood glucose: 112 mg/dL Average Mediastinum SUV: 1.52 Average Liver SUV: 2.42 FINDINGS: NECK: No suspicious uptake THORAX: No suspicious uptake. See osseous structures for osseous uptake. ABDOMEN: No suspicious uptake PELVIS: No suspicious uptake Lower extremities: No suspicious uptake. See osseous structures for osseous uptake. OSSEOUS STRUCTURES: There is uptake within the manubrium and a bone lesion. SUV 7.86, image 97. Milde r uptake is within the adjacent soft tissues, 4.68, image 97. There is a focus of radiotracer within the anterior lateral distal femoral diaphysis, image 320, SUV 5.11. LOCALIZATION CT: Postsurgical changes are within the right foot. There may be a partially calcified n odule within the lateral left upper lung field. No suspicious radiotracer uptake evident. COMPARISON: No suspicious abnormality within the humerus to correlate with the bone survey findings. IMPRESSION: 1. There is a lytic area with increased radiotracer uptake within the manubrium. The adjacent soft ti ssue component has milder but elevated uptake. 2. There is a additional focus of radiotracer within the distal anterior lateral right diaphyseal fem ur. 3. No suspicious uptake within the right humerus. [facility], , 11/19/2024 11:13 AM
== END | disposition home or self-care (01) ==
LOC: RADPETMAIN 12:19
PROVIDERS: ATTEND Internal Medicine Hematology & Oncology
DX: C90.00 Multiple myeloma not having achieved remission (principal)
CPT/HCPCS: 78815; A9552

== ENCOUNTER → 2024-11-28 | Outpatient (CLI) | payer MEDICARE ==
--- NOTE | 2024-11-29 14:42 | CA ---
Transthoracic Echo Report Name: Abbey Campo Age: 79 Gender: F : 1945 Exam Date: 11/28/2024 13:01 Exam Location: [facility] Ht (in): 62 Wt (lb): 170 Ordering Physician: Alexander Reno MD Attending/Referring Phys: Jose Wilson DO Knife Glazer Rosalind Madrid RDCS Procedure CPT: Indications: Z01.818 Chemo Cardiac Hx: Technical Quality: Fair Contrast 1: Total Dose (mL): Contrast 2: Total Dose (mL): MEASUREMENTS (Male / Female) Normal Values 2D ECHO LV Diastolic Diameter PLAX 3.6 cm 4.2 - 5.9 / 3.9 - 5.3 cm LV Systolic Diameter PLAX 2.9 cm IVS Diastolic Thickness 0.8 cm 0.6 - 1.0 / 0.6 - 0.9 cm LVPW Diastolic Thickness 1.5 cm 0.6 - 1.0 / 0.6 - 0.9 cm LV Relative Wall Thickness 0.6 RV Internal Dim ED PLAX 2.8 cm LA Systolic Diameter LX 3.9 cm 3.0 - 4.0 / 2.7 - 3.8 cm LV Diastolic Volume MOD BP 87.6 cm??? 67 - 155 / 56 - 104 cm??? LV Systolic Volume MOD BP 35.7 cm??? 22 - 58 / 19 - 49 cm??? LV Ejection Fraction MOD BP 59.3 % >= 55 % LV Cardiac Index MOD BP 2199.1 cm???/min???m??? LV Diastolic Volume MOD 4C 86.8 cm??? LV Systolic Volume MOD 4C 31.5 cm??? LV Ejection Fraction MOD 4C 63.6 % LV Cardiac Index MOD 4C 2339.2 cm???/min???m??? LV Diastolic Length 4C 6.1 cm LV Systolic Length 4C 4.9 cm LV Diastolic Volume MOD 2C 80.8 cm??? LV Systolic Volume MOD 2C 36.3 cm??? LV Ejection Fraction MOD 2C 55.1 % LV Cardiac Index MOD 2C 1885.0 cm???/min???m??? LV Diastolic Length 2C 6.8 cm LV Systolic Length 2C 5.5 cm LA Volume 68.8 cm??? 18 - 58 / 22 - 52 cm??? LA Volume Index 36.9 cm???/m??? 16 - 28 cm???/m??? M-MODE Aortic Root Diameter MM 2.9 cm AV Cusp Separation MM 1.6 cm DOPPLER AV Peak Velocity 148.1 cm/s AV Peak Gradient 8.8 mmHg LVOT Peak Velocity 102.3 cm/s LVOT Peak Gradient 4.2 mmHg MV Peak Velocity 151.8 cm/s MV Peak Gradient 9.2 mmHg MV Mean Velocity 78.7 cm/s MV Mean Gradient 2.9 mmHg MV Velocity Time Integral 39.2 cm MV Area PHT 2.6 cm??? Mitral E Point Velocity 81.4 cm/s Mitral A Point Velocity 141.4 cm/s Mitral E to A Ratio 0.6 MV Deceleration Time 287.1 ms TR Peak Velocity 249.0 cm/s TR Peak Gradient 24.8 mmHg Right Ventricular Systolic Press 29.2 mmHg FINDINGS Left Ventricle Left ventricular ejection fraction is estimated at 55-60%. Moderately increased posterior wall thickness. Left ventricular cavity size normal. No obvious regional wall motion abnormalities. Right Ventricle Normal right ventricular size and function. Right ventricular systolic pressure within normal limits. Right Atrium Normal right atrial size. No right atrial thrombus or mass seen. Left Atrium Mildly increased left atrial diameter. Moderately increased left atrial volume. Mildly increased left atrial area. No left atrial thrombus or mass present. Mitral Valve Moderate thickening/calcification of the anterior mitral valve leaflet. Moderate mitral annular calcification. Mild mitral regurgitation. Aortic Valve Diffuse thickening (sclerosis) of the aortic valve cusps without reduced excursion. No aortic valve stenosis or regurgitation. Tricuspid Valve Structurally normal tricuspid valve. Question calcification on the posterior annulus of the tricuspid valve Trace to mild tricuspid regurgitation. Pulmonic Valve Pulmonic valve not well visualized. No pulmonic regurgitation. Pericardium No pericardial effusion. No pleural effusion. Question anterior fat pad. Aorta Aortic root and proximal ascending aorta not well visualized. CONCLUSIONS Reason patient on chemotherapy, LV function assessment Left ventricular systolic function at the lower limits of normal of 55% with very subtle posterior lateral hypokinesis Normal LV size and function calcific mitral valve Calcific tricuspid valve Calcific aortic valve Previewed by: Dr. Alton Oreilly MD (Electronically Signed) Final Date: 29 November 2024 14:41
== END | disposition home or self-care (01) ==
LOC: RADECHMAIN 12:46
PROVIDERS: ATTEND Internal Medicine Hematology & Oncology
DX: Z01.818 Encounter for other preprocedural examination (principal); R19.7 Diarrhea, unspecified; C90.00 Multiple myeloma not having achieved remission; D72.819 Decreased white blood cell count, unspecified; I34.81 Nonrheumatic mitral (valve) annulus calcification; I07.1 Rheumatic tricuspid insufficiency; Z71.3 Dietary counseling and surveillance
CPT/HCPCS: 93306